=== PATIENT | female | born 1945 | race Caucasian/White ===

== ENCOUNTER 2022-06-14 12:24 | Inpatient (IN) ==
[2022-06-14] MEDS ORDERED: IPRATROPIUM/ALBUTEROL 3 ML AMPUL.NEB NEB ONE (12:32)
[2022-06-14] MEDS ORDERED: methylPREDNISolone SOD SUCC 125 MG/2 ML VIAL IV ONE (12:33)
[2022-06-14] MEDS ORDERED: MAGNESIUM SULFATE 2 GM/50 ML BAG IV ONE (12:36)
[2022-06-14] MEDS ORDERED: FUROSEMIDE 40 MG/4 ML VIAL IV ONE (12:37)
--- NOTE | 2022-06-14 12:43 | Emergency Department Note ---
SOB HPI General Chief Complaint: Shortness of Breath/Dyspnea Stated Complaint: shortness of breath, hypoxia Time Seen by Provider: 06/14/22 12:29 Source: patient and EMS Mode of arrival: EMS History of Present Illness HPI Narrative: Narrative: 77-year-old female history of diabetes, hypertension presenting to the ED via EMS for severe dyspnea, acute hypoxic respiratory failure. She was seen in the ED 2 days ago and was diagnosed with a left lower pneumonia and also had a bit of a pleural effusion and elevated BNP. She was sent home on antibiotics. However today she suddenly worsened. She says she has had fever, chills, URI symptoms, productive cough and now severely worsening dyspnea. No chest pains at any point. No history of heart failure, no history of known chronic lung disease such as COPD or asthma. When EMS arrived she was hypoxic 75% on room air. They placed her on a nonrebreather and gave her 2 breathing treatments and brought her to the ER. Related Data Home Medications Medication Instructions Recorded Confirmed amitriptyline 10 mg tablet 10 mg PO HS 06/12/22 06/14/22 citalopram 20 mg tablet 20 mg PO QDAY 06/12/22 06/14/22 levothyroxine 100 mcg tablet 100 mcg PO QDAY 06/12/22 06/14/22 lisinopril 20 mg tablet 20 mg PO BID 06/12/22 06/14/22 metformin 500 mg tablet,extended 1,000 mg PO HS 06/12/22 06/14/22 release 24 hr omeprazole 20 mg capsule,delayed 20 mg PO QDAY 06/12/22 06/14/22 release simvastatin 20 mg tablet 20 mg PO HS 06/12/22 06/14/22 Previous Rx's Medication Instructions Recorded amoxicillin 875 mg-potassium 1 tab PO BID Community-acquired 06/12/22 clavulanate 125 mg tablet pneumonia #14 tabs Allergies Allergy/AdvReac Type Severity Reaction Status Date / Time No Known Drug Allergies Allergy Verified 06/12/22 09:41 Review of Systems ROS ROS Narrative: Narrative: Limitations: ROS unobtainable due to patients medical condition [facility] Narrative Patient History Narrative: Narrative: Medical/Surgical/Family History All Active Problems (Updated 06/14/22 @ 16:20 by Natan Soriano DO) Elevated LFTs (Acute) Community acquired pneumonia (Acute) Fever (Acute) Generalized weakness (Acute) Pneumonia (Acute) Sepsis (Acute) Acute respiratory failure with hypoxia (Acute) Elevated troponin (Acute) Elevated brain natriuretic peptide (BNP) level (Acute) Obesity (BMI 30.0-34.9) (Chronic) Hypertension, essential (Chronic) Diabetes mellitus, type 2 (Chronic) Dizziness (Acute) Stomach cramps (Acute) Syncope (Acute) Medical History Diabetes mellitus, type 2 Hypertension, essential Obesity (BMI 30.0-34.9) Social History Smoking Status: Smoker, status unknown Exam Narrative Narrative: Narrative: Constitutional: normally developed, patient is acutely ill-appearing she is in respiratory distress, tachycardic, tachypneic hypoxic afebrile she is diaphoretic Head: Normocephalic, atraumatic, Eyes: No Icterus, ENT: Moist mucus membranes, Neck: Supple, no stridor Cardiac: Tachycardic regular heart sounds, palpable peripheral pulses, no peripheral edema Pulmonary: She is in some respiratory distress but able to answer simple yes or no questions, she has inspiratory and expiratory wheezing and sporadic crackles. Prolonged expiration Gastrointestinal: Abdomen soft, non-distended, non-tender, Musculoskeletal: No gross deformities, well perfused Skin: warm, dry Neuro: Alert and oriented. Course Vital Signs Vital signs: Vital Signs Temperature 37.2 C 06/14/22 12:35 Pulse Rate 132 H 06/14/22 12:35 Respiratory Rate 36 H 06/14/22 12:35 Blood Pressure 152/87 06/14/22 12:35 Pulse Oximetry (%) 86 L 06/14/22 12:35 Oxygen Delivery Method Simple Mask 06/14/22 12:35 Oxygen Flow Rate (L/min) 8 06/14/22 12:35 Temperature 37.7 C H 06/14/22 15:15 Pulse Rate 113 H 06/14/22 18:51 Respiratory Rate 30 H 06/14/22 18:51 Blood Pressure 153/82 06/14/22 18:51 Pulse Oximetry (%) 94 06/14/22 18:51 Oxygen Delivery Method BiPAP 06/14/22 15:46 Oxygen Flow Rate (L/min) 8 06/14/22 12:35 [facility] MDM Narrative Medical decision making narrative: Narrative: Patient presents as above she is in significant hypoxic respiratory distress very wheezy with sporadic rhonchi and rales. I did quickly review her last recent visit she was diagnosed with pneumonia 2 days ago it seemed to be more focal to the left lower lobe at that time also a small pleural effusion and she had an elevated BNP of 3000. She is not on any diuretics. She is not having any chest pain and no history of chronic lung disease. We did immediately place her on some BiPAP give her another breathing treatment some magnesium sulfate and 40 Lasix while awaiting results. Differential includes but certainly not limited to worsening pneumonia, sepsis, CHF exacerbation, bronchospasm or reactive airway disease, hypercapnia, ACS. Did hold initial IV fluids out of concern for volume overload, CHF especially given her recently elevated BNP and pleural effusion on x-ray 2 days ago. Gave vancomycin/cefepime for suspected worsening pneumonia despite outpatient antibiotic Twelve-lead EKG has a wandering baseline given her respiratory status, although it does appear to be a sinus tachycardia heart rate 130 QTC appears prolonged does have a left bundle branch block pattern with no obvious sgarbossa criteria. No STEMI criteria. Does appear similar to her EKG done just 2 days ago. And she does have a and she does have a known previous left bundle branch block from 2019 CXR per my preliminary interpretation looks like a worsening left lower lobe pneumonia, questionable CHF compared to couple days ago Initial VBG shows a slight acidosis 7.29 with a PCO2 of 48, PO2 of 32 and a bicarb of 23. Lactic acid 4.7 Re-eval, patient feels immediate improvement on the BiPAP, work of breathing much better sats improved CBC shows a white count now of 23, marked increase from 2 days ago BNP is quite elevated 21,000 Chest x-ray interpreted by our radiologist shows worsened left mid/lower lobe pneumonia, just a small pleural effusion no noted CHF Reevaluation continues to feel better, in the setting of worsening pneumonia/sepsis and persistent tachycardia without florid CHF on CXR I will start small judicious IV fluids at a time starting with 500 cc. We will also give her ofirmev of as she is starting to spike a low-grade fever COVID flu negative Electrolytes show a hyponatremia hypochloremia sodium 121, anion gap of 17 with a bicarb of 20, glucose of 172, normal renal function, no significant abnormality to her LFTs Initial troponin elevated 0.29 she has no chest pain in the setting of respiratory distress with hypoxia and pneumonia I suspect is likely secondary, will trend Repeat blood gas pH 7.3, PCO2 41, PO2 of 53 lactic acid improving 2.8 Repeat troponin however uptrending 0.45, again patient is not having any chest pains. Repeat EKG at 1552, remains sinus tachycardic heart rate improved now 115, QTc improved 500, again left bundle branch block, no STEMI criteria Discussed with the hospitalist, will reach out to [facility] to discuss case see if she is appropriate to admit here or if we should transfer 1600: Spoke with Dr. Hatfield, [facility] final inspector and tester re: presentation, uptrending troponin, significantly increased BNP etc. agrees presentation suggests this is type II NSTEMI/demand, recs continue treatment for underlying pneumonia/sepsis, does recommend echo, also suggests that if echo shows stress-induced cardiomyopathy recommendations would still likely be to treat the underlying illness (PNA/sepsis). 1610: Spoke with Dr. Torres again, he graciously accepts admission. I will also given another 500cc bolus, as she seemed to tolerate the first one well and heart rate is improving Critical Care Time Total CriticalCare time was at least 45 minutes, excluding separately reportable procedures. There was a high probability of clinically significant/life threatening deterioration in the patient's condition which required my urgent intervention. Medical Records Medical records reviewed: Yes I reviewed the patient's medical records. Lab Data 06/14/22 12:35 06/14/22 12:35 Labs: Lab Results 06/14/22 06/14/22 06/14/22 Range/Units 12:35 12:35 12:35 WBC 23.4 H (4.5-11.0) K/mcL RBC 4.05 (3.59-5.38) M/mcL Hgb 12.7 (11.2-15.7) g/dL Hct 37.7 (34.1-44.9) % MCV 93.1 (80.0-100.0) fL MCH 31.4 (26.0-34.0) pg MCHC 33.7 (31.0-36.0) g/dL RDW 15.3 H (11.5-14.5) % Plt Count 225 (140-440) K/mcL MPV 10.5 (8.8-12.5) fL Immature Gran % (Auto) 3.1 H (0.0-0.5) % Neut % (Auto) 81.9 H (38.0-78.0) % Lymph % (Auto) 7.4 L (15.5-49.0) % [place] % (Auto) 7.0 (1.0-12.0) % Eos % (Auto) 0 (0.0-7.0) % Baso % (Auto) 0.6 (0.0-2.0) % Lymph # (Auto) 1.74 (1.50-4.80) K/mcL [place] # (Auto) 1.65 H (0.10-0.90) K/mcL Eos # (Auto) 0.01 (0.00-0.70) K/mcL Baso # (Auto) 0.13 (0.00-0.30) K/mcL Immature Gran # 0.72 H (0.00-0.05) K/mcl Absolute Neutrophils 19.17 H (1.80-8.00) K/mcL POC VBG pH (7.32-7.42) POC VBG pCO2 at Temp (41-51) POC VBG pO2 (25-40) POC VBG HCO3 (24-28) POC VBG Total CO2 (25-29) POC Venous O2 Sat (40-70) POC VBG Base Excess (-2-2) VBG Lactic Acid (0.5-2) Sodium 121 L (133-145) mmol/L Potassium 4.2 (3.3-5.1) mmol/L Chloride 84 L (96-108) mmol/L Carbon Dioxide 20 L (22-30) mmol/L Anion Gap 17.0 H (8.0-16.0) BUN 18 (8-23) mg/dL Creatinine 0.9 (0.6-1.1) mg/dL GFR Calculation 62 Glucose 172 H (70-105) mg/dL Calcium 8.9 (8.6-10.4) mg/dL Total Bilirubin 0.9 (0.1-1.0) mg/dL AST 64 H (<32) U/L ALT 35 (<40) U/L Alkaline Phosphatase 96 (39-117) U/L C-Reactive Protein 24.10 H (0.03-0.80) mg/dL NT-Pro-B Natriuret Pep 49681.0 H (<450.0) pg/mL Total Protein 6.4 (5.9-8.4) gm/dL Albumin 3.1 L (3.2-5.2) gm/dL Globulin 3.3 (2.2-3.7) gm/dL Albumin/Globulin Ratio 0.9 L (1.0-2.3) Procalcitonin (<0.10) ng/mL POC Troponin I (0.00-0.08) 06/14/22 06/14/22 06/14/22 Range/Units 12:35 12:42 12:42 WBC (4.5-11.0) K/mcL RBC (3.59-5.38) M/mcL Hgb (11.2-15.7) g/dL Hct (34.1-44.9) % MCV (80.0-100.0) fL MCH (26.0-34.0) pg MCHC (31.0-36.0) g/dL RDW (11.5-14.5) % Plt Count (140-440) K/mcL MPV (8.8-12.5) fL Immature Gran % (Auto) (0.0-0.5) % Neut % (Auto) (38.0-78.0) % Lymph % (Auto) (15.5-49.0) % [place] % (Auto) (1.0-12.0) % Eos % (Auto) (0.0-7.0) % Baso % (Auto) (0.0-2.0) % Lymph # (Auto) (1.50-4.80) K/mcL [place] # (Auto) (0.10-0.90) K/mcL Eos # (Auto) (0.00-0.70) K/mcL Baso # (Auto) (0.00-0.30) K/mcL Immature Gran # (0.00-0.05) K/mcl Absolute Neutrophils (1.80-8.00) K/mcL POC VBG pH 7.29 L (7.32-7.42) POC VBG pCO2 at Temp 48.7 (41-51) POC VBG pO2 32 (25-40) POC VBG HCO3 23.2 L (24-28) POC VBG Total CO2 25.0 (25-29) POC Venous O2 Sat 53.0 (40-70) POC VBG Base Excess -3.0 L (-2-2) VBG Lactic Acid 4.7 H* (0.5-2) Sodium (133-145) mmol/L Potassium (3.3-5.1) mmol/L Chloride (96-108) mmol/L Carbon Dioxide (22-30) mmol/L Anion Gap (8.0-16.0) BUN (8-23) mg/dL Creatinine (0.6-1.1) mg/dL GFR Calculation Glucose (70-105) mg/dL Calcium (8.6-10.4) mg/dL Total Bilirubin (0.1-1.0) mg/dL AST (<32) U/L ALT (<40) U/L Alkaline Phosphatase (39-117) U/L C-Reactive Protein (0.03-0.80) mg/dL NT-Pro-B Natriuret Pep (<450.0) pg/mL Total Protein (5.9-8.4) gm/dL Albumin (3.2-5.2) gm/dL Globulin (2.2-3.7) gm/dL Albumin/Globulin Ratio (1.0-2.3) Procalcitonin 11.45 H (<0.10) ng/mL POC Troponin I 0.29 H (0.00-0.08) 06/14/22 06/14/22 06/14/22 Range/Units 15:17 15:19 16:05 WBC (4.5-11.0) K/mcL RBC (3.59-5.38) M/mcL Hgb (11.2-15.7) g/dL Hct (34.1-44.9) % MCV (80.0-100.0) fL MCH (26.0-34.0) pg MCHC (31.0-36.0) g/dL RDW (11.5-14.5) % Plt Count (140-440) K/mcL MPV (8.8-12.5) fL Immature Gran % (Auto) (0.0-0.5) % Neut % (Auto) (38.0-78.0) % Lymph % (Auto) (15.5-49.0) % [place] % (Auto) (1.0-12.0) % Eos % (Auto) (0.0-7.0) % Baso % (Auto) (0.0-2.0) % Lymph # (Auto) (1.50-4.80) K/mcL [place] # (Auto) (0.10-0.90) K/mcL Eos # (Auto) (0.00-0.70) K/mcL Baso # (Auto) (0.00-0.30) K/mcL Immature Gran # (0.00-0.05) K/mcl Absolute Neutrophils (1.80-8.00) K/mcL POC VBG pH 7.30 L (7.32-7.42) POC VBG pCO2 at Temp 41.8 (41-51) POC VBG pO2 53 H (25-40) POC VBG HCO3 20.6 L (24-28) POC VBG Total CO2 22.0 L (25-29) POC Venous O2 Sat 83.0 H (40-70) POC VBG Base Excess -6.0 L (-2-2) VBG Lactic Acid 2.8 H 2.3 H (0.5-2) Sodium (133-145) mmol/L Potassium (3.3-5.1) mmol/L Chloride (96-108) mmol/L Carbon Dioxide (22-30) mmol/L Anion Gap (8.0-16.0) BUN (8-23) mg/dL Creatinine (0.6-1.1) mg/dL GFR Calculation Glucose (70-105) mg/dL Calcium (8.6-10.4) mg/dL Total Bilirubin (0.1-1.0) mg/dL AST (<32) U/L ALT (<40) U/L Alkaline Phosphatase (39-117) U/L C-Reactive Protein (0.03-0.80) mg/dL NT-Pro-B Natriuret Pep (<450.0) pg/mL Total Protein (5.9-8.4) gm/dL Albumin (3.2-5.2) gm/dL Globulin (2.2-3.7) gm/dL Albumin/Globulin Ratio (1.0-2.3) Procalcitonin (<0.10) ng/mL POC Troponin I 0.45 H (0.00-0.08) ED POC Tests ED POC Tests: NEIL - Influenza A Negative NEIL - Influenza B Negative NEIL - SARS Antigen Negative Discharge Plan Patient/Caregiver Discharge Instructions Pt seen by INFORMATION SECURITY CONSULTANT/PA only: No Clinical Impression: Pneumonia, Sepsis, Acute respiratory failure with hypoxia, Elevated troponin, Elevated brain natriuretic peptide (BNP) level Patient Disposition: Xfer As Inpt ([facility]) Condition: Critical Prescriptions: No Action lisinopril 20 mg tablet 20 mg PO BID levothyroxine 100 mcg tablet 100 mcg PO QDAY amitriptyline 10 mg tablet 10 mg PO HS simvastatin 20 mg tablet 20 mg PO HS omeprazole 20 mg capsule,delayed release(DR/EC) 20 mg PO QDAY citalopram 20 mg tablet 20 mg PO QDAY metformin 500 mg tablet extended release 24 hr 1,000 mg PO HS amoxicillin-pot clavulanate 875-125 mg tablet 1 tab PO BID Qty: 14 0RF
[2022-06-14] MEDS ORDERED: CEFEPIME 2 GM VIAL IV ONE (13:14)
[2022-06-14] MEDS ORDERED: VANCOMYCIN 1,000 MG in 0.9 % SODIUM CHLORIDE 250 ML IV ONE (13:14)
[2022-06-14 13:22] LABS: Basophils # (Auto) 0.13 K/mcL (0.00-0.30); Basophils % (Auto) 0.6 % (0.0-2.0); Eosinophils # (Auto) 0.01 K/mcL (0.00-0.70); Eosinophils % (Auto) 0 % (0.0-7.0); Hematocrit 37.7 % (34.1-44.9); Hemoglobin 12.7 g/dL (11.2-15.7); Lymphocytes # (Auto) 1.74 K/mcL (1.50-4.80); Lymphocytes % (Auto) 7.4 % (15.5-49.0); Mean Cell Volume 93.1 fL (80.0-100.0); Mean Corpuscular HGB Conc 33.7 g/dL (31.0-36.0); Mean Platelet Volume 10.5 fL (8.8-12.5); Monocytes # (Auto) 1.65 K/mcL (0.10-0.90); Neutrophils % (Auto) 81.9 % (38.0-78.0); Platelet Count 225 K/mcL (140-440); RBC 4.05 M/mcL (3.59-5.38); Red Cell Distribution Width 15.3 % (11.5-14.5)
--- NOTE | 2022-06-14 13:22 | XRay Report ---
CLINICAL INFORMATION: [Left basilar pneumonia COMPARISON: 06/12/2022 TECHNIQUE: Portable FINDINGS: Borderline cardiomegaly is unchanged. Mediastinum and pulmonary vessels are normal. Moderate sized infiltrate left mid and lower lung has worsened considerably. Small left pleural effusion noted. IMPRESSION: Moderate infiltrate left mid and lower lung-worsening from exam three days ago. This likely represents immune acquired pneumonia Interpreted and Authenticated by: Chetan Timmons 06/14/22
[2022-06-14 13:43] LABS: ALT/SGPT 35 U/L (<40); AST/SGOT 64 U/L (<32); Albumin 3.1 gm/dL (3.2-5.2); Albumin/Globulin Ratio 0.9 (1.0-2.3); Alkaline Phosphatase 96 U/L (39-117); Bilirubin,Total 0.9 mg/dL (0.1-1.0); Blood Urea Nitrogen 18 mg/dL (8-23); Calcium 8.9 mg/dL (8.6-10.4); Carbon Dioxide 20 mmol/L (22-30); Chloride 84 mmol/L (96-108); Globulin 3.3 gm/dL (2.2-3.7); Glomerular Filtration Rate 62; Glucose 172 mg/dL (70-105)
[2022-06-14] MEDS ORDERED: 0.9 % SODIUM CHLORIDE 500 ML IV ONE ×2 (13:58→16:13)
[2022-06-14 14:04] LABS: WBC 23.4 K/mcL (4.5-11.0)
[2022-06-14] MEDS ORDERED: ACETAMINOPHEN 1,000 MG/100 ML BAG IV ONE (14:24)
--- NOTE | 2022-06-14 16:36 | Internal Med History&Physical ---
HPI History of Present Illness Patient information: Note initiated : 06/14/22 at 4:28 pm Service Date, if different from initiated Date: [] Patient: Sharyn Strickland a 77 y/o F admitted on for shortness of breath, hypoxia. Chief Complaint: [] History of present illness: Ms. Strickland is a 77 year old F Presents the ED for worsening shortness of breath and weakness. Patient was seen in the ED several days ago on Wednesday and diagnosed with pneumonia without any other concerning findings and was saturating well on room air. She was started on antibiotics however she continued to over wednesday and wednesday severe shortness of breath and weakness. She also complained of fevers chills and nausea and headache. Productive cough of yellow-green sputum. She first started feeling ill on Wednesday with cold symptoms after her had been sick. She also complains of diarrhea. Patient denies chest pain. When EMS arrived she was 75% on room air. In the ED she was tachycardic and tachypneic. She had developed a leukocytosis and a lactic acidosis. VBG showed acidosis 7.29. Patient placed on BiPAP. Mild troponin elevation and significant increase in bnp from several days ago. Case d/w cardio with ED physician who felt troponins likely 2/2 to demand ischemia, type 2 DC. And that if she had developed a stress cardiomyopathy it would be same treatment, and to get echo. Rapid flu and COVID-negative. Review of Systems: Pertinent positives as above. Denies vomiting/chest or abdominal pain. Remaining 10 point review of system reviewed negative PFSH PFSH All Active Problems (Updated 06/14/22 @ 16:20 by Natan Soriano DO) Elevated LFTs (Acute) Community acquired pneumonia (Acute) Fever (Acute) Generalized weakness (Acute) Pneumonia (Acute) Sepsis (Acute) Acute respiratory failure with hypoxia (Acute) Elevated troponin (Acute) Elevated brain natriuretic peptide (BNP) level (Acute) Obesity (BMI 30.0-34.9) (Chronic) Hypertension, essential (Chronic) Diabetes mellitus, type 2 (Chronic) Dizziness (Acute) Stomach cramps (Acute) Syncope (Acute) Medical History Diabetes mellitus, type 2 Hypertension, essential Obesity (BMI 30.0-34.9) Social History smoking status: Smoker, status unknown MEDS/ALLERGIES Home Medications and Allergies Home Medications Medication Instructions Recorded Confirmed Type amitriptyline 10 mg tablet 10 mg PO HS 06/12/22 06/14/22 History amoxicillin 875 mg-potassium 1 tab PO BID Community-acquired 06/12/22 06/14/22 Rx clavulanate 125 mg tablet pneumonia #14 tabs citalopram 20 mg tablet 20 mg PO QDAY 06/12/22 06/14/22 History levothyroxine 100 mcg tablet 100 mcg PO QDAY 06/12/22 06/14/22 History lisinopril 20 mg tablet 20 mg PO BID 06/12/22 06/14/22 History metformin 500 mg tablet,extended 1,000 mg PO HS 06/12/22 06/14/22 History release 24 hr omeprazole 20 mg capsule,delayed 20 mg PO QDAY 06/12/22 06/14/22 History release simvastatin 20 mg tablet 20 mg PO HS 06/12/22 06/14/22 History Allergies Allergy/AdvReac Type Severity Reaction Status Date / Time No Known Drug Allergies Allergy Verified 06/12/22 09:41 EXAM Constitutional Vitals: Temp Pulse Resp BP Pulse Ox O2 Del Method O2 Flow Rate 100 F H 117 H 28 H 144/65 95 BiPAP 8 06/14/22 15:15 06/14/22 15:55 06/14/22 15:55 06/14/22 15:46 06/14/22 15:55 06/14/22 15:46 06/14/22 12:35 Exam: General: Alert, Awake, mild resp distress Eyes/N/T: EOMI, PERRL, Head/Neck: neck supple, normocephalic atraumatic CV: RRR, No murmurs, normal s1/s2 Pulm: rhonchi/rales L>R, no wheezing Abd: soft, nontender, +BS x4 Ext: no clubbing/cyanosis/edema Neuro: Alert, no focal deficits, moves all extremities, CN 2-12 grossly intact, sensations intact b/l upper/lower Skin: warm/dry DATA Data Completed and Pending Labs: Labs from last 24 hours 06/14/22 06/14/22 06/14/22 16:05 15:19 15:17 WBC RBC Hgb Hct MCV MCH MCHC RDW Plt Count MPV Immature Gran % (Auto) Neut % (Auto) Lymph % (Auto) [place] % (Auto) Eos % (Auto) Baso % (Auto) Lymph # (Auto) [place] # (Auto) Eos # (Auto) Baso # (Auto) Immature Gran # Absolute Neutrophils POC VBG pH 7.30 L POC VBG pCO2 at Temp 41.8 POC VBG pO2 53 H POC VBG HCO3 20.6 L POC VBG Total CO2 22.0 L POC Venous O2 Sat 83.0 H POC VBG Base Excess -6.0 L VBG Lactic Acid Pending 2.8 H Sodium Potassium Chloride Carbon Dioxide Anion Gap BUN Creatinine GFR Calculation Glucose Calcium Total Bilirubin AST ALT Alkaline Phosphatase NT-Pro-B Natriuret Pep Total Protein Albumin Globulin Albumin/Globulin Ratio POC Troponin I 0.45 H 06/14/22 06/14/22 06/14/22 12:42 12:42 12:35 WBC RBC Hgb Hct MCV MCH MCHC RDW Plt Count MPV Immature Gran % (Auto) Neut % (Auto) Lymph % (Auto) [place] % (Auto) Eos % (Auto) Baso % (Auto) Lymph # (Auto) [place] # (Auto) Eos # (Auto) Baso # (Auto) Immature Gran # Absolute Neutrophils POC VBG pH 7.29 L POC VBG pCO2 at Temp 48.7 POC VBG pO2 32 POC VBG HCO3 23.2 L POC VBG Total CO2 25.0 POC Venous O2 Sat 53.0 POC VBG Base Excess -3.0 L VBG Lactic Acid 4.7 H* Sodium 121 L Potassium 4.2 Chloride 84 L Carbon Dioxide 20 L Anion Gap 17.0 H BUN 18 Creatinine 0.9 GFR Calculation 62 Glucose 172 H Calcium 8.9 Total Bilirubin 0.9 AST 64 H ALT 35 Alkaline Phosphatase 96 NT-Pro-B Natriuret Pep 59769.0 H Total Protein 6.4 Albumin 3.1 L Globulin 3.3 Albumin/Globulin Ratio 0.9 L POC Troponin I 0.29 H 06/14/22 12:35 WBC 23.4 H RBC 4.05 Hgb 12.7 Hct 37.7 MCV 93.1 MCH 31.4 MCHC 33.7 RDW 15.3 H Plt Count 225 MPV 10.5 Immature Gran % (Auto) 3.1 H Neut % (Auto) 81.9 H Lymph % (Auto) 7.4 L [place] % (Auto) 7.0 Eos % (Auto) 0 Baso % (Auto) 0.6 Lymph # (Auto) 1.74 [place] # (Auto) 1.65 H Eos # (Auto) 0.01 Baso # (Auto) 0.13 Immature Gran # 0.72 H Absolute Neutrophils 19.17 H POC VBG pH POC VBG pCO2 at Temp POC VBG pO2 POC VBG HCO3 POC VBG Total CO2 POC Venous O2 Sat POC VBG Base Excess VBG Lactic Acid Sodium Potassium Chloride Carbon Dioxide Anion Gap BUN Creatinine GFR Calculation Glucose Calcium Total Bilirubin AST ALT Alkaline Phosphatase NT-Pro-B Natriuret Pep Total Protein Albumin Globulin Albumin/Globulin Ratio POC Troponin I A/P Narrative A/P Narrative: A: *Acute hypoxic respiratory failure: 2/2 PNA -currently on bipap *PNA: *Severe sepsis: 2/2 above *Lactic acidosis: 2/2 above *Hyponatremia: *Volume depletion: *Demand ischemia: *DM2: *HTN/HLD: *Depression/anxiety: *Hypothyroidism: *GERD: P: -IV antibiotics, pending BC/SC -IVF, follow-up lactate -Monitor UOP, fluid balance closely -Follow-up and trend sodium and other electrolytes, replete as necessary -IS/Acapella, RT, nebs as needed -O2 support and wean as able -Strep/RVP pending -Procalcitonin pending -f/u trop -echo to eval for stress cardiomyopathy -SSI -cont home ACEI -Home medication reconciliation -PT/OT -CM for placement needs -ppx: Lovenox / home ppi Time Spent With Patient Time: Total time spent is greater than 50% in coordination of care (as documented) at patient's floor/unit and/or counseling patient: Critical Care Time: Yes Total Critical Care Time: 70
[2022-06-14] MEDS ORDERED: cefTRIAXone 1 GM in DEXTROSE 5% IN WATER 50 ML IV SCH (19:20)
[2022-06-14] MEDS ORDERED: MAGNESIUM SULFATE 2 GM/50 ML BAG IV PRN (19:20)
[2022-06-14] MEDS ORDERED: POTASSIUM CHLORIDE 40 MEQ in DEXTROSE 5% IN WATER 500 ML IV PRN (19:20)
[2022-06-14] MEDS ORDERED: ONDANSETRON 4 MG/2 ML VIAL IV PRN (19:20)
[2022-06-14] MEDS ORDERED: DEXTROSE 50% 50 ML VIAL IV PRN (19:20)
[2022-06-14] MEDS ORDERED: DEXTROSE 31 GM ORAL.SUSP PO PRN (19:20)
[2022-06-14] MEDS ORDERED: POTASSIUM CHLORIDE 20 MEQ TABLET PO PRN ×2 (19:20)
[2022-06-14 19:40] LABS: Appearance,Urine CLEAR (Clear); Bilirubin,Urine NEGATIVE (Negative); Color,Urine YELLOW; Culture Indicated,Urine No; Glucose,Urine (UA) NEGATIVE (Negative); Ketones,Urine NEGATIVE (Negative); Leukocyte Esterase,Urine NEGATIVE /uL (Negative); Mucus,Urine MOD /hpf; Nitrate,Urine NEGATIVE (Negative); Protein,Urine >=300 mg/dL (Negative); Specific Gravity,Urine 1.025 (1.000-1.035); Urine Blood SMALL ery/mcL (Negative); Urine Granular Cast 4 /lph (0-0); Urine Hyaline Cast 3 /lph (0-2); Urine RBC 2 /hpf (0-3); Urine Squamous Epithelial Cell 0 /hpf (0-4); Urine WBC 5 /hpf (0-4); Urobilinogen,Urine Normal
[2022-06-14] MEDS: AZITHROMYCIN 500 MG in DEXTROSE 5% IN WATER 250 ML IV SCH (19:51)
[2022-06-14] MEDS: cefTRIAXone 1 GM VIAL IV SCH (19:55)
[2022-06-14] MEDS: INSULIN LISPRO 1 UNIT/0.01 ML UNIT SQ SCH ×2 (22:08→22:49)
[2022-06-14] MEDS: SIMVASTATIN 20 MG TABLET PO SCH (22:14)
[2022-06-14] MEDS: ACETAMINOPHEN 325 MG TABLET PO PRN (22:14)
[2022-06-14] MEDS: AMITRIPTYLINE 10 MG TABLET PO SCH (22:14)
[2022-06-14] MEDS: LISINOPRIL 20 MG TABLET PO SCH (22:14)
[2022-06-14] MEDS: guaiFENesin 600 MG TAB.SR.12H PO PRN (22:15)
[2022-06-14] MEDS: 0.9 % SODIUM CHLORIDE 10 ML SYRINGE IV SCH (22:15)
[2022-06-14] MEDS: LABETALOL 5 MG/ML ML IV PRN (23:26)
[2022-06-14] MEDS: IPRATROPIUM/ALBUTEROL 3 ML AMPUL.NEB NEB PRN (23:27)
[2022-06-15] MEDS: 0.9 % SODIUM CHLORIDE 10 ML SYRINGE IV SCH ×3 (05:12→20:40)
[2022-06-15] MEDS: OMEPRAZOLE 20 MG CAPSULE PO SCH (06:54)
[2022-06-15] MEDS: LEVOTHYROXINE 100 MCG TABLET PO SCH (06:54)
[2022-06-15] MEDS: INSULIN LISPRO 1 UNIT/0.01 ML UNIT SQ SCH ×4 (06:54→20:40)
[2022-06-15] MEDS: IPRATROPIUM/ALBUTEROL 3 ML AMPUL.NEB NEB PRN ×3 (07:00→23:25)
--- NOTE | 2022-06-15 07:44 | Internal Med Progress Note ---
SUBJECTIVE Subjective Patient information: Note initiated : 06/15/22 at 7:38 am Service Date, if different from initiated Date: [] Patient: Sharyn Strickland a 77 y/o F admitted on 06/14/22 for shortness of breath, hypoxia. Chief Complaint: [] Interval history: History of present illness: Ms. Strickland is a 77 year old F Presents the ED for worsening shortness of breath and weakness. Patient was seen in the ED several days ago on Wednesday and diagnosed with pneumonia without any other concerning findings and was saturating well on room air. She was started on antibiotics however she continued to over wednesday and wednesday severe shortness of breath and weakness. She also complained of fevers chills and nausea and headache. Productive cough of yellow-green sputum. She first started feeling ill on Wednesday with cold symptoms after her had been sick. She also complains of diarrhea. Patient denies chest pain. When EMS arrived she was 75% on room air. In the ED she was tachycardic and tachypneic. She had developed a leukocytosis and a lactic acidosis. VBG showed acidosis 7.29. Patient placed on BiPAP. Mild troponin elevation and significant increase in bnp from several days ago. Case d/w cardio with ED physician who felt troponins likely 2/2 to demand ischemia, type 2 IN. And that if she had developed a stress cardiomyopathy it would be same treatment, and to get echo. Rapid flu and COVID-negative. 06/15 Patient taken off of BiPAP this morning for meds. We will also get VBG. She says she still quite short of breath. Has a Cough. No nausea vomiting or headaches. She does have some diarrhea. Sodium mildly improved still quite low. Hypophosphatemia. Review of Systems: denies headache/fever/chills/nausea/vomiting/chest or abdominal pain. Otherwise see above. Constitutional Vitals: Vital Signs Temp Pulse Resp BP Pulse Ox O2 Del Method O2 Flow Rate 97.2 F 107 H 32 H 150/81 99 BiPAP 6 06/15/22 03:00 06/15/22 06:30 06/15/22 06:30 06/15/22 06:30 06/15/22 06:30 06/15/22 06:30 06/15/22 02:55 Period Temp Pulse Resp BP Sys/Laughlin Pulse Ox O2 Del Method O2 Flow Rate Last 24 Hr 97.2 F-100.3 F 85-137 19-38 95-202/47-115 83-99 BiPAP-Simple Mask 5-8 Intake and Output 06/14/22 06/15/22 06/15/22 19:59 03:59 11:59 Intake Total 1400 986 Output Total 225 325 150 Balance 1175 661 -150 Weight 81.193 kg 77.649 kg Intake & Output: Intake & Output 06/14/22 06/15/22 06/15/22 19:59 03:59 11:59 Intake Total 1400 986 Output Total 225 325 150 Balance 1175 661 -150 Weight 81.193 kg 77.649 kg Intake: IV 1400 250 Sodium Chloride 0.9% 500 ml @ 1000 Wide Open IV BOLUS ONE Rx#: [id number] Zithromax 500 mg In Dextrose 5% 250 in Water 250 ml @ 250 mls/hr IV Q24H COUNTS INCLUDE 234 BEDS AT THE [facility] Rx#:[id number] Vancomycin 1,000 mg In Sodium 250 Chloride 0.9% 250 ml @ 250 mls/ hr IV ONCE ONE Rx#:[id number] Oral 736 Output: Urine Catheter Amount 225 325 150 Other: Urine Appearance Clear Clear Clear Uretheral (Miller) Clear Urine Color Dark Yellow Dark Yellow Dark Yellow Uretheral (Miller) Dark Yellow Urine Odor Normal Normal Stool Size Copious Stool Color Green Stool Consistency Loose Liquid Loose # Bowel Movements 1 # of times incontinent of 1 Bowels Exam: General: Alert, Awake, no acute distress Eyes/N/T: EOMI, Head/Neck: neck supple, CV: Tacky but regular, No murmurs, Pulm: rhonchi/rales b/l, no wheezing, somewhat labored Abd: soft, nontender, +BS x4 Ext: no clubbing/cyanosis/edema Neuro: Alert, no focal deficits, moves all extremities, Skin: warm/dry OBJ DATA Labs 06/14/22 12:35 06/14/22 12:35 Labs: Abnormal Lab Results 06/14/22 06/14/22 06/14/22 17:45 16:05 15:19 WBC RDW Immature Gran % (Auto) Neut % (Auto) Lymph % (Auto) [place] # (Auto) Immature Gran # Absolute Neutrophils POC VBG pH POC VBG pO2 POC VBG HCO3 POC VBG Total CO2 POC Venous O2 Sat POC VBG Base Excess VBG Lactic Acid 2.3 H Sodium Chloride Carbon Dioxide Anion Gap Glucose AST C-Reactive Protein NT-Pro-B Natriuret Pep Albumin Albumin/Globulin Ratio Procalcitonin Urine Protein >=300 A Urine Occult Blood Small A Urine WBC 5 H Hyaline Casts 3 H Granular Casts 4 H Urine Mucus Mod A POC Troponin I 0.45 H 06/14/22 06/14/22 06/14/22 15:17 12:42 12:42 WBC RDW Immature Gran % (Auto) Neut % (Auto) Lymph % (Auto) [place] # (Auto) Immature Gran # Absolute Neutrophils POC VBG pH 7.30 L 7.29 L POC VBG pO2 53 H POC VBG HCO3 20.6 L 23.2 L POC VBG Total CO2 22.0 L POC Venous O2 Sat 83.0 H POC VBG Base Excess -6.0 L -3.0 L VBG Lactic Acid 2.8 H 4.7 H* Sodium Chloride Carbon Dioxide Anion Gap Glucose AST C-Reactive Protein NT-Pro-B Natriuret Pep Albumin Albumin/Globulin Ratio Procalcitonin Urine Protein Urine Occult Blood Urine WBC Hyaline Casts Granular Casts Urine Mucus POC Troponin I 0.29 H 06/14/22 06/14/22 06/14/22 12:35 12:35 12:35 WBC RDW Immature Gran % (Auto) Neut % (Auto) Lymph % (Auto) [place] # (Auto) Immature Gran # Absolute Neutrophils POC VBG pH POC VBG pO2 POC VBG HCO3 POC VBG Total CO2 POC Venous O2 Sat POC VBG Base Excess VBG Lactic Acid Sodium 121 L Chloride 84 L Carbon Dioxide 20 L Anion Gap 17.0 H Glucose 172 H AST 64 H C-Reactive Protein 24.10 H NT-Pro-B Natriuret Pep 61527.0 H Albumin 3.1 L Albumin/Globulin Ratio 0.9 L Procalcitonin 11.45 H Urine Protein Urine Occult Blood Urine WBC Hyaline Casts Granular Casts Urine Mucus POC Troponin I 06/14/22 12:35 WBC 23.4 H RDW 15.3 H Immature Gran % (Auto) 3.1 H Neut % (Auto) 81.9 H Lymph % (Auto) 7.4 L [place] # (Auto) 1.65 H Immature Gran # 0.72 H Absolute Neutrophils 19.17 H POC VBG pH POC VBG pO2 POC VBG HCO3 POC VBG Total CO2 POC Venous O2 Sat POC VBG Base Excess VBG Lactic Acid Sodium Chloride Carbon Dioxide Anion Gap Glucose AST C-Reactive Protein NT-Pro-B Natriuret Pep Albumin Albumin/Globulin Ratio Procalcitonin Urine Protein Urine Occult Blood Urine WBC Hyaline Casts Granular Casts Urine Mucus POC Troponin I Meds: Medications Acetaminophen (Acetaminophen 325 Mg Tablet) 650 mg PO Q6HP PRN; Protocol PRN Reason: Per Pain Protocol/Fever > 101 Last Admin: 06/14/22 22:14 Dose: 650 mg Albuterol/Ipratropium (Ipratropium/Albuterol 3 Ml Ampul.Neb) 3 ml NEB Q4HP PRN PRN Reason: Shortness Of Breath Last Admin: 06/15/22 07:00 Dose: 3 ml Amitriptyline HCl (Amitriptyline 10 Mg Tablet) 10 mg PO HS SHARON Last Admin: 06/14/22 22:14 Dose: 10 mg Ceftriaxone Sodium (Ceftriaxone 1 Gm Vial) 1 gm IV Q24H SHARON Last Admin: 06/14/22 19:55 Dose: 1 gm Citalopram Hydrobromide (Citalopram 20 Mg Tablet) 20 mg PO QDAY SHARON Dextrose (Dextrose 50% 50 Ml Vial) 0 ml IV UD PRN PRN Reason: Per Sliding Scale Diagnostic Test (Pha) (Accu-Chek 1 Each Strip) 1 each FS ACHS SHARON Last Admin: 06/15/22 06:55 Dose: 1 each Enoxaparin Sodium (Enoxaparin 40 Mg/0.4 Ml Syringe) 40 mg SQ DAILY SHARON Glucose (Dextrose 31 Gm Oral.Susp) 15 gm PO PRN PRN PRN Reason: Hypoglycemia Guaifenesin (Guaifenesin 600 Mg Tab.Sr.12h) 1,200 mg PO BIDP PRN PRN Reason: Congestion Last Admin: 06/14/22 22:15 Dose: 1,200 mg Azithromycin 500 mg/ Dextrose 250 mls @ 250 mls/hr IV Q24H SHARON; Protocol Stop: 06/16/22 20:59 Last Infusion: 06/14/22 20:55 Dose: Infused Magnesium Sulfate (Magnesium Sulfate) 2 gm in 50 mls @ 50 mls/hr IV UD PRN PRN Reason: Magnesium </= 1.6 Potassium Chloride 40 meq/ (Dextrose) 520 mls @ 130 mls/hr IV UD PRN PRN Reason: Potassium < 3 Insulin Human Lispro (Insulin Lispro 1 Unit/0.01 Ml Unit) 0 unit SQ ACHS COUNTS INCLUDE 234 BEDS AT THE [facility]; Protocol Last Admin: 06/15/22 06:54 Dose: Not Given Labetalol HCl (Labetalol 5 Mg/Ml Ml) 0 mg IV Q2HP PRN PRN Reason: Hypertension Last Admin: 06/14/22 23:26 Dose: 5 mg Levothyroxine Sodium (Levothyroxine 100 Mcg Tablet) [facility] Last Admin: 06/15/22 06:54 Dose: 100 mcg Lisinopril (Lisinopril 20 Mg Tablet) 20 mg PO BID COUNTS INCLUDE 234 BEDS AT THE [facility] Last Admin: 06/14/22 22:14 Dose: 20 mg Omeprazole (Omeprazole 20 Mg Capsule) 20 mg PO [facility] Last Admin: 06/15/22 06:54 Dose: 20 mg Ondansetron HCl (Ondansetron 4 Mg/2 Ml Vial) 4 mg IV Q4HP PRN PRN Reason: Nausea And Vomiting Last Admin: 06/14/22 22:14 Dose: 4 mg Pneumococcal Polyvalent Vaccine (Pneumococcal 23-Barbra P-Sac Vac 0.5 Ml Syringe) 0.5 ml IM .ONCE ONE Stop: 06/17/22 09:01 Potassium Chloride (Potassium Chloride 20 Meq Tablet) 40 meq PO UD PRN PRN Reason: Potassium < 3 Potassium Chloride (Potassium Chloride 20 Meq Tablet) 40 meq PO UD PRN PRN Reason: Potssium is 3-3.5 Simvastatin (Simvastatin 20 Mg Tablet) 20 mg PO [facility] Last Admin: 06/14/22 22:14 Dose: 20 mg Sodium Chloride (0.9 % Sodium Chloride 10 Ml Syringe) 10 ml IV Q8 COUNTS INCLUDE 234 BEDS AT THE [facility] Last Admin: 06/15/22 05:12 Dose: 10 ml A/P Narrative A/P Narrative: A: *Acute hypoxic respiratory failure: 2/2 PNA -currently on bipap *PNA: -strep/covid/flu neg -RSV(+), elevated PCT *Severe sepsis: 2/2 above -leukocytosis/tachycardia/tachypnea/Fever *Lactic acidosis: 2/2 above *Hyponatremia/hypophosphatemia: *Volume depletion: *Demand ischemia: f/u troponin this AM decreased *DM2: *HTN/HLD: *Depression/anxiety: *Hypothyroidism: *GERD: P: -pending am labs -wean off bipap, f/u vbg -cxr -IV antibiotics, pending BC/SC -s/p IVF, follow-up lactate -Monitor UOP, fluid balance closely -Follow-up and trend sodium and other electrolytes, replete as necessary -IS/Acapella, RT, nebs as needed -O2 support and wean as able -Strep/RVP pending -Procalcitonin pending -f/u trop -echo to eval for stress cardiomyopathy -SSI -cont home ACEI -PT/OT -CM for placement needs -ppx: Lovenox / home ppi Time Spent With Patient Time: Total time spent is greater than 50% in coordination of care (as documented) at patient's floor/unit and/or counseling patient: Critical Care Time: Yes Total Critical Care Time: 45
[2022-06-15] MEDS: CITALOPRAM 20 MG TABLET PO SCH (08:50)
[2022-06-15] MEDS: LISINOPRIL 20 MG TABLET PO SCH ×2 (08:50→20:39)
[2022-06-15] MEDS: ENOXAPARIN 40 MG/0.4 ML SYRINGE SQ SCH (08:51)
[2022-06-15] MEDS: cefTRIAXone 1 GM VIAL IV SCH (08:54)
--- NOTE | 2022-06-15 09:48 | XRay Report ---
CLINICAL INFORMATION: Follow-up left lung pneumonia COMPARISON: 06/14/2022 TECHNIQUE: Portable FINDINGS: The heart size, mediastinum and pulmonary vessels are unremarkable. Large patchy infiltrate in the left mid and lower lung shows slight improved aeration in the mid lung component. Small patchy infiltrate has developed in the right lung base.. There are no effusions. The bones and soft tissues are within normal limits. IMPRESSION: Large patchy infiltrate in the left mid and lower lung with slight improvement midlung component since comparison exam yesterday. New small patchy infiltrate has developed in the right base Interpreted and Authenticated by: Chetan Timmons 06/15/22
[2022-06-15 10:24] LABS: ALT/SGPT 27 U/L (<40); AST/SGOT 51 U/L (<32); Albumin 2.2 gm/dL (3.2-5.2); Albumin/Globulin Ratio 0.7 (1.0-2.3); Alkaline Phosphatase 75 U/L (39-117); Basophils # (Auto) 0.12 K/mcL (0.00-0.30); Basophils % (Auto) 0.7 % (0.0-2.0); Bilirubin,Direct 0.3 mg/dL (<0.3); Bilirubin,Total 0.5 mg/dL (0.1-1.0); Blood Urea Nitrogen 26 mg/dL (8-23); Calcium 8.2 mg/dL (8.6-10.4); Carbon Dioxide 20 mmol/L (22-30); Chloride 95 mmol/L (96-108); Eosinophils # (Auto) 0.05 K/mcL (0.00-0.70); Eosinophils % (Auto) 0.3 % (0.0-7.0); Globulin 3.2 gm/dL (2.2-3.7); Glomerular Filtration Rate 72; Glucose 124 mg/dL (70-105); Hematocrit 34.1 % (34.1-44.9); Hemoglobin 11.3 g/dL (11.2-15.7); Lactate Dehydrogenase 280 U/L (135-225); Lymphocytes # (Auto) 1.33 K/mcL (1.50-4.80); Lymphocytes % (Auto) 7.5 % (15.5-49.0); Mean Cell Volume 94.2 fL (80.0-100.0); Mean Corpuscular HGB Conc 33.1 g/dL (31.0-36.0); Mean Platelet Volume 10.2 fL (8.8-12.5); Monocytes # (Auto) 1.52 K/mcL (0.10-0.90); Monocytes % (Auto) 8.6 % (1.0-12.0); Neutrophils % (Auto) 80.3 % (38.0-78.0); Platelet Count 172 K/mcL (140-440); RBC 3.62 M/mcL (3.59-5.38); Red Cell Distribution Width 15.6 % (11.5-14.5); Triglycerides 250 mg/dL (<150); Uric Acid 6.9 mg/dL (2.5-8.0); WBC 17.8 K/mcL (4.5-11.0)
[2022-06-15] MEDS: PHOSPHORUS 250 MG TABLET PO SCH ×2 (10:41→20:39)
[2022-06-15] MEDS: AZITHROMYCIN 500 MG in DEXTROSE 5% IN WATER 250 ML IV SCH (11:53)
[2022-06-15] MEDS: guaiFENesin 600 MG TAB.SR.12H PO PRN ×2 (14:45→20:40)
[2022-06-15] MEDS: AMITRIPTYLINE 10 MG TABLET PO SCH (20:39)
[2022-06-15] MEDS: ACETAMINOPHEN 325 MG TABLET PO PRN (20:40)
[2022-06-15] MEDS: SIMVASTATIN 20 MG TABLET PO SCH (20:40)
[2022-06-16] MEDS: 0.9 % SODIUM CHLORIDE 10 ML SYRINGE IV SCH ×3 (06:00→20:35)
[2022-06-16 06:38] LABS: Basophils # (Auto) 0.19 K/mcL (0.00-0.30); Basophils % (Auto) 0.9 % (0.0-2.0); Eosinophils # (Auto) 0.11 K/mcL (0.00-0.70); Eosinophils % (Auto) 0.5 % (0.0-7.0); Hematocrit 32.2 % (34.1-44.9); Lymphocytes # (Auto) 1.82 K/mcL (1.50-4.80); Lymphocytes % (Auto) 8.7 % (15.5-49.0); Mean Corpuscular HGB Conc 34.2 g/dL (31.0-36.0); Mean Platelet Volume 10.2 fL (8.8-12.5); Monocytes # (Auto) 1.85 K/mcL (0.10-0.90); Monocytes % (Auto) 8.9 % (1.0-12.0); Neutrophils % (Auto) 73.4 % (38.0-78.0); Platelet Count 189 K/mcL (140-440); Red Cell Distribution Width 15.8 % (11.5-14.5); WBC 20.9 K/mcL (4.5-11.0)
[2022-06-16 06:55] LABS: ALT/SGPT 28 U/L (<40); AST/SGOT 53 U/L (<32); Albumin 2.2 gm/dL (3.2-5.2); Albumin/Globulin Ratio 0.7 (1.0-2.3); Alkaline Phosphatase 95 U/L (39-117); Bilirubin,Direct 0.4 mg/dL (<0.3); Bilirubin,Total 0.6 mg/dL (0.1-1.0); Blood Urea Nitrogen 21 mg/dL (8-23); Calcium 8.1 mg/dL (8.6-10.4); Carbon Dioxide 23 mmol/L (22-30); Chloride 96 mmol/L (96-108); Globulin 3.1 gm/dL (2.2-3.7); Glomerular Filtration Rate 88; Glucose 105 mg/dL (70-105); Lactate Dehydrogenase 258 U/L (135-225); Phosphorous 2.2 mg/dL (2.5-4.5); Triglycerides 188 mg/dL (<150); Uric Acid 5.3 mg/dL (2.5-8.0)
[2022-06-16] MEDS: LEVOTHYROXINE 100 MCG TABLET PO SCH (07:11)
[2022-06-16] MEDS: INSULIN LISPRO 1 UNIT/0.01 ML UNIT SQ SCH ×4 (07:11→21:18)
[2022-06-16] MEDS: OMEPRAZOLE 20 MG CAPSULE PO SCH (07:11)
--- NOTE | 2022-06-16 07:27 | EKG ---
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
--- NOTE | 2022-06-16 07:28 | EKG ---
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
[2022-06-16] MEDS: ENOXAPARIN 40 MG/0.4 ML SYRINGE SQ SCH (08:19)
[2022-06-16] MEDS: CITALOPRAM 20 MG TABLET PO SCH (08:19)
[2022-06-16] MEDS: cefTRIAXone 1 GM VIAL IV SCH (08:20)
[2022-06-16] MEDS: PHOSPHORUS 250 MG TABLET PO SCH (08:20)
[2022-06-16] MEDS: LISINOPRIL 20 MG TABLET PO SCH ×2 (08:20→20:35)
[2022-06-16] MEDS: guaiFENesin 600 MG TAB.SR.12H PO PRN ×2 (08:24→21:44)
[2022-06-16] MEDS: IPRATROPIUM/ALBUTEROL 3 ML AMPUL.NEB NEB SCH ×3 (10:15→21:00)
--- NOTE | 2022-06-16 10:21 | Internal Med Progress Note ---
SUBJECTIVE Subjective Patient information: Note initiated : 06/16/22 at 10:19 am Service Date, if different from initiated Date: [] Patient: Sharyn Strickland 77 y/o F admitted on 06/14/22 for shortness of breath, hypoxia. Chief Complaint: [SOB] Principal diagnosis: Viral/bacterial pneumonia, Acute hypoxemic resp failure Interval history: The patient is doing much better per my discussion with RN. She has not required BiPAP. Yesterday, she could only go 10 minutes without BiPAP. Constitutional Vitals: Vital Signs Temp Pulse Resp BP Pulse Ox O2 Del Method O2 Flow Rate 97.2 F 110 H 18 130/97 92 Room Air 6 06/16/22 08:01 06/16/22 10:16 06/16/22 10:16 06/16/22 10:01 06/16/22 10:16 06/16/22 10:16 06/15/22 02:55 Period Temp Pulse Resp BP Sys/Laughlin Pulse Ox O2 Del Method O2 Flow Rate Last 24 Hr 96.8 F-98.7 F 76-118 14-31 101-145/58-100 91-100 BiPAP-Room Air Intake and Output 06/15/22 06/16/22 06/16/22 19:59 03:59 11:59 Intake Total 1080 460 460 Output Total 565 449 430 Balance 515 11 30 Weight 77.649 kg 80.331 kg Intake & Output: Intake & Output 06/15/22 06/16/22 06/16/22 19:59 03:59 11:59 Intake Total 1080 460 460 Output Total 565 449 430 Balance 515 11 30 Weight 77.649 kg 80.331 kg Intake: IV 250 Zithromax 500 mg In Dextrose 5% 250 in Water 250 ml @ 250 mls/hr IV Q24H [facility] Rx#:[id number] Oral 830 460 460 Output: Urine Catheter Amount 565 449 430 Other: Meal Dinner Percent of Meal Consumed 100% Feeding Ability Assist with Tray Set Up Urine Appearance Clear Clear Clear Uretheral (Miller) Clear Clear Clear Urine Color Dark Yellow Dark Yellow Dark Yellow Uretheral (Miller) Dark Yellow Dark Yellow Dark Yellow Urine Odor Normal Normal Stool Size Copious Moderate Stool Color Green Green Stool Consistency Liquid Liquid Loose Loose # of times incontinent of 1 Bowels Head Head exam: Present atraumatic and normal inspection Eye Eye exam: Present normal appearance ENT ENT exam: Present mucous membranes moist, normal exam and normal external ear exam Neck Neck exam: Present normal inspection Respiratory Respiratory exam: Present accessory muscle use, rhonchi and wheezes; Absent respiratory distress Cardiovascular Cardiovascular exam: Present normal rate and rhythm GI/Abdominal GI/Abdominal exam: Present normal bowel sounds Back Exam Back exam: Present normal inspection Neurological Exam Neurological exam: Present alert and oriented X3 Skin Skin exam: Present intact and warm OBJ DATA Labs 06/16/22 05:23 06/16/22 05:23 Labs: Abnormal Lab Results 06/16/22 06/16/22 06/16/22 05:24 05:23 05:23 WBC 20.9 H RBC 3.50 L Hgb 11.0 L Hct 32.2 L RDW 15.8 H Immature Gran % (Auto) 7.6 H Neut % (Auto) Lymph % (Auto) 8.7 L Lymph # (Auto) [place] # (Auto) 1.85 H Immature Gran # 1.59 H Absolute Neutrophils 15.31 H POC pO2 POC VBG pH POC VBG pO2 POC VBG HCO3 POC VBG Total CO2 POC Venous O2 Sat POC VBG Base Excess VBG Lactic Acid Sodium 128 L Chloride Carbon Dioxide Anion Gap BUN Glucose Calcium 8.1 L Phosphorus 2.2 L Direct Bilirubin 0.4 H GGT 89 H AST 53 H Lactate Dehydrogenase 258 H Troponin T C-Reactive Protein 12.90 H NT-Pro-B Natriuret Pep Total Protein 5.3 L Albumin 2.2 L Albumin/Globulin Ratio 0.7 L Triglycerides 188 H Procalcitonin 4.57 H Urine Protein Urine Occult Blood Urine WBC Hyaline Casts Granular Casts Urine Mucus POC Troponin I 06/15/22 06/15/22 06/15/22 11:58 04:58 04:58 WBC RBC Hgb Hct RDW Immature Gran % (Auto) Neut % (Auto) Lymph % (Auto) Lymph # (Auto) [place] # (Auto) Immature Gran # Absolute Neutrophils POC pO2 77 L POC VBG pH POC VBG pO2 POC VBG HCO3 POC VBG Total CO2 POC Venous O2 Sat POC VBG Base Excess VBG Lactic Acid Sodium 124 L Chloride 95 L Carbon Dioxide 20 L Anion Gap BUN 26 H Glucose 124 H Calcium 8.2 L Phosphorus 2.0 L Direct Bilirubin 0.3 H GGT 88 H AST 51 H Lactate Dehydrogenase 280 H Troponin T 0.05 H* C-Reactive Protein NT-Pro-B Natriuret Pep Total Protein 5.4 L Albumin 2.2 L Albumin/Globulin Ratio 0.7 L Triglycerides 250 H Procalcitonin Urine Protein Urine Occult Blood Urine WBC Hyaline Casts Granular Casts Urine Mucus POC Troponin I 06/15/22 06/14/22 06/14/22 04:58 17:45 16:05 WBC 17.8 H RBC Hgb Hct RDW 15.6 H Immature Gran % (Auto) 2.6 H Neut % (Auto) 80.3 H Lymph % (Auto) 7.5 L Lymph # (Auto) 1.33 L [place] # (Auto) 1.52 H Immature Gran # 0.46 H Absolute Neutrophils 14.28 H POC pO2 POC VBG pH POC VBG pO2 POC VBG HCO3 POC VBG Total CO2 POC Venous O2 Sat POC VBG Base Excess VBG Lactic Acid 2.3 H Sodium Chloride Carbon Dioxide Anion Gap BUN Glucose Calcium Phosphorus Direct Bilirubin GGT AST Lactate Dehydrogenase Troponin T C-Reactive Protein NT-Pro-B Natriuret Pep Total Protein Albumin Albumin/Globulin Ratio Triglycerides Procalcitonin Urine Protein >=300 A Urine Occult Blood Small A Urine WBC 5 H Hyaline Casts 3 H Granular Casts 4 H Urine Mucus Mod A POC Troponin I 06/14/22 06/14/22 06/14/22 15:19 15:17 12:42 WBC RBC Hgb Hct RDW Immature Gran % (Auto) Neut % (Auto) Lymph % (Auto) Lymph # (Auto) [place] # (Auto) Immature Gran # Absolute Neutrophils POC pO2 POC VBG pH 7.30 L POC VBG pO2 53 H POC VBG HCO3 20.6 L POC VBG Total CO2 22.0 L POC Venous O2 Sat 83.0 H POC VBG Base Excess -6.0 L VBG Lactic Acid 2.8 H Sodium Chloride Carbon Dioxide Anion Gap BUN Glucose Calcium Phosphorus Direct Bilirubin GGT AST Lactate Dehydrogenase Troponin T C-Reactive Protein NT-Pro-B Natriuret Pep Total Protein Albumin Albumin/Globulin Ratio Triglycerides Procalcitonin Urine Protein Urine Occult Blood Urine WBC Hyaline Casts Granular Casts Urine Mucus POC Troponin I 0.45 H 0.29 H 06/14/22 06/14/22 06/14/22 12:42 12:35 12:35 WBC RBC Hgb Hct RDW Immature Gran % (Auto) Neut % (Auto) Lymph % (Auto) Lymph # (Auto) [place] # (Auto) Immature Gran # Absolute Neutrophils POC pO2 POC VBG pH 7.29 L POC VBG pO2 POC VBG HCO3 23.2 L POC VBG Total CO2 POC Venous O2 Sat POC VBG Base Excess -3.0 L VBG Lactic Acid 4.7 H* Sodium Chloride Carbon Dioxide Anion Gap BUN Glucose Calcium Phosphorus Direct Bilirubin GGT AST Lactate Dehydrogenase Troponin T C-Reactive Protein 24.10 H NT-Pro-B Natriuret Pep Total Protein Albumin Albumin/Globulin Ratio Triglycerides Procalcitonin 11.45 H Urine Protein Urine Occult Blood Urine WBC Hyaline Casts Granular Casts Urine Mucus POC Troponin I 06/14/22 06/14/22 12:35 12:35 WBC 23.4 H RBC Hgb Hct RDW 15.3 H Immature Gran % (Auto) 3.1 H Neut % (Auto) 81.9 H Lymph % (Auto) 7.4 L Lymph # (Auto) [place] # (Auto) 1.65 H Immature Gran # 0.72 H Absolute Neutrophils 19.17 H POC pO2 POC VBG pH POC VBG pO2 POC VBG HCO3 POC VBG Total CO2 POC Venous O2 Sat POC VBG Base Excess VBG Lactic Acid Sodium 121 L Chloride 84 L Carbon Dioxide 20 L Anion Gap 17.0 H BUN Glucose 172 H Calcium Phosphorus Direct Bilirubin GGT AST 64 H Lactate Dehydrogenase Troponin T C-Reactive Protein NT-Pro-B Natriuret Pep 65856.0 H Total Protein Albumin 3.1 L Albumin/Globulin Ratio 0.9 L Triglycerides Procalcitonin Urine Protein Urine Occult Blood Urine WBC Hyaline Casts Granular Casts Urine Mucus POC Troponin I Meds: Medications Acetaminophen (Acetaminophen 325 Mg Tablet) 650 mg PO Q6HP PRN; Protocol PRN Reason: Per Pain Protocol/Fever > 101 Last Admin: 06/15/22 20:40 Dose: 650 mg Albuterol/Ipratropium (Ipratropium/Albuterol 3 Ml Ampul.Neb) 3 ml NEB Q6H SHARON Last Admin: 06/16/22 10:15 Dose: 3 ml Amitriptyline HCl (Amitriptyline 10 Mg Tablet) 10 mg PO HS SHARON Last Admin: 06/15/22 20:39 Dose: 10 mg Budesonide (Budesonide 0.5 Mg/2 Ml Ampul.Neb) 0.5 mg NEB Q12 SHARON Ceftriaxone Sodium (Ceftriaxone 1 Gm Vial) 1 gm IV Q24H [facility] Last Admin: 06/16/22 08:20 Dose: 1 gm Citalopram Hydrobromide (Citalopram 20 Mg Tablet) 20 mg PO QDAY [facility] Last Admin: 06/16/22 08:19 Dose: 20 mg Dextrose (Dextrose 50% 50 Ml Vial) 0 ml IV UD PRN PRN Reason: Per Sliding Scale Diagnostic Test (Pha) (Accu-Chek 1 Each Strip) 1 each FS ACHS [facility] Last Admin: 06/16/22 07:10 Dose: 1 each Enoxaparin Sodium (Enoxaparin 40 Mg/0.4 Ml Syringe) 40 mg SQ DAILY [facility] Last Admin: 06/16/22 08:19 Dose: 40 mg Glucose (Dextrose 31 Gm Oral.Susp) 15 gm PO PRN PRN PRN Reason: Hypoglycemia Guaifenesin (Guaifenesin 600 Mg Tab.Sr.12h) 1,200 mg PO BIDP PRN PRN Reason: Congestion Last Admin: 06/16/22 08:24 Dose: 1,200 mg Azithromycin 500 mg/ Dextrose 250 mls @ 250 mls/hr IV Q24H [facility]; Protocol Stop: 06/16/22 20:59 Last Infusion: 06/15/22 13:06 Dose: Infused Magnesium Sulfate (Magnesium Sulfate) 2 gm in 50 mls @ 50 mls/hr IV UD PRN PRN Reason: Magnesium </= 1.6 Potassium Chloride 40 meq/ (Dextrose) 520 mls @ 130 mls/hr IV UD PRN PRN Reason: Potassium < 3 Insulin Human Lispro (Insulin Lispro 1 Unit/0.01 Ml Unit) 0 unit SQ [facility]; Protocol Last Admin: 06/16/22 07:11 Dose: Not Given Labetalol HCl (Labetalol 5 Mg/Ml Ml) 0 mg IV Q2HP PRN PRN Reason: Hypertension Last Admin: 06/14/22 23:26 Dose: 5 mg Levothyroxine Sodium (Levothyroxine 100 Mcg Tablet) 100 mcg PO QAMAC [facility] Last Admin: 06/16/22 07:11 Dose: 100 mcg Lisinopril (Lisinopril 20 Mg Tablet) 20 mg PO BID [facility] Last Admin: 06/16/22 08:20 Dose: 20 mg Omeprazole (Omeprazole 20 Mg Capsule) 20 mg PO QAMAC [facility] Last Admin: 06/16/22 07:11 Dose: 20 mg Ondansetron HCl (Ondansetron 4 Mg/2 Ml Vial) 4 mg IV Q4HP PRN PRN Reason: Nausea And Vomiting Last Admin: 06/14/22 22:14 Dose: 4 mg Pneumococcal Polyvalent Vaccine (Pneumococcal 23-Barbra P-Sac Vac 0.5 Ml Syringe) 0.5 ml IM .ONCE ONE Stop: 06/17/22 09:01 Potassium Chloride (Potassium Chloride 20 Meq Tablet) 40 meq PO UD PRN PRN Reason: Potassium < 3 Potassium Chloride (Potassium Chloride 20 Meq Tablet) 40 meq PO UD PRN PRN Reason: Potssium is 3-3.5 Last Admin: 06/16/22 07:11 Dose: 40 meq Simvastatin (Simvastatin 20 Mg Tablet) 20 mg PO HS [facility] Last Admin: 06/15/22 20:40 Dose: 20 mg Sodium Chloride (0.9 % Sodium Chloride 10 Ml Syringe) 10 ml IV Q8 [facility] Last Admin: 06/16/22 06:00 Dose: 10 ml A/P Narrative A/P Narrative: A: *Acute hypoxic respiratory failure: 2/2 PNA -currently on bipap *PNA: -strep/covid/flu neg -RSV(+), elevated PCT *Severe sepsis: 2/2 above -leukocytosis/tachycardia/tachypnea/Fever *Lactic acidosis: 2/2 above *Hyponatremia/hypophosphatemia: *Volume depletion: *Demand ischemia: f/u troponin this AM decreased *DM2: *HTN/HLD: *Depression/anxiety: *Hypothyroidism: *GERD: P: -started pulmicort and make duonebs scheduled 06/16 -weaned off bipap 06/16 -CTA chest pending -IV antibiotics, pending BC/SC -s/p IVF, follow-up lactate -Monitor UOP, fluid balance closely -Follow-up and trend sodium and other electrolytes, replete as necessary -IS/Acapella, RT, nebs as needed -O2 support and wean as able -Strep/RVP pending -Procalcitonin pending -f/u trop -echo to eval for stress cardiomyopathy -SSI -cont home ACEI -PT/OT -CM for placement needs -ppx: Lovenox / home ppi Time Spent With Patient Time: Total time spent is greater than 50% in coordination of care (as documented) at patient's floor/unit and/or counseling patient: Subsequent: Total time with patient: 35 - 49 minutes
[2022-06-16] MEDS ORDERED: IOPAMIDOL 100 ML BOTTLE IV ONE (10:53)
[2022-06-16] MEDS: AZITHROMYCIN 500 MG in DEXTROSE 5% IN WATER 250 ML IV SCH (11:11)
--- NOTE | 2022-06-16 12:35 | Cat Scan Report ---
CLINICAL INFORMATION: Shortness of breath and hypoxia history of breast cancer COMPARISON: None. TECHNIQUE: 80ml of Isovue-370 were injected intravenously. Using SmartPrep to maximize pulmonary artery opacification, .625mm helical slices were obtained from the lung apices through the lung bases. Following reconstruction, 2.5 mm sagittal, coronal, and axial reformations were processed. The exam was reviewed at mediastinal, lung, and bone windows. The exam was performed using radiation dose optimization techniques including, but not limited to, automated exposure control, adjustment of the mA and/or kV according to patient size and use of iterative reconstruction technique. FINDINGS: Pulmonary parenchymal windows show large alveolar infiltrate throughout the posterior left upper and posterior left lower lobe and a moderate patchy groundglass alveolar infiltrate in the posterior medial right lower lobe. Moderate tree-in-bud infiltrate present posterior segment of the right upper lobe. Moderate left and small right pleural effusions noted. Mediastinal windows show the heart is moderately enlarged with new small pericardial effusion.. The pulmonary arteries are normal diameter and well-opacified without evidence of embolus. Thoracic aorta is also normal diameter and well-opacified. Mildly enlarged lymph nodes present in the mid and lower mediastinum are likely benign reactive lymph nodes related to infection. Esophagus is grossly normal. The thyroid is unremarkable. Bones and soft tissues the chest wall are normal. Images through the superior abdomen are unremarkable. IMPRESSION: 1. No evidence of pulmonary embolus 2. Large alveolar infiltrates in the posterior left upper and lower lobes moderate infiltrate posterior right lower lobe and small tree-in-bud infiltrate posterior right upper lobe. Suspect infection or aspiration. 3. No evidence of recurrent malignancy or metastatic disease. 4. Moderate cardiomegaly with small pericardial effusion-increased from the previous exam Interpreted and Authenticated by: Chetan Timmons 06/16/22
[2022-06-16] MEDS: ACETAMINOPHEN 325 MG TABLET PO PRN (14:08)
[2022-06-16] MEDS: AMITRIPTYLINE 10 MG TABLET PO SCH (20:35)
[2022-06-16] MEDS: SIMVASTATIN 20 MG TABLET PO SCH (20:35)
[2022-06-16] MEDS: BUDESONIDE 0.5 MG/2 ML AMPUL.NEB NEB SCH (21:00)
[2022-06-17] MEDS: IPRATROPIUM/ALBUTEROL 3 ML AMPUL.NEB NEB SCH ×4 (02:55→19:10)
[2022-06-17] MEDS: 0.9 % SODIUM CHLORIDE 10 ML SYRINGE IV SCH ×3 (06:00→21:34)
--- NOTE | 2022-06-17 06:38 | Internal Med Progress Note ---
SUBJECTIVE Subjective Patient information: Note initiated : 06/17/22 at 6:37 am Service Date, if different from initiated Date: [] Patient: Sharyn Strickland 77 y/o F admitted on 06/14/22 for shortness of breath, hypoxia. Chief Complaint: [] Principal diagnosis: Viral/bacterial pneumonia, Acute hypoxemic resp failure Interval history: Patient was able to remain off BiPAP yesterday, however has needed it during the night. Constitutional Vitals: Vital Signs Temp Pulse Resp BP Pulse Ox O2 Del Method O2 Flow Rate 96.7 F L 89 18 127/74 93 BiPAP 2 06/17/22 04:01 06/17/22 06:01 06/17/22 06:01 06/17/22 06:01 06/17/22 06:01 06/17/22 06:01 06/17/22 04:01 Period Temp Pulse Resp BP Sys/Laughlin Pulse Ox O2 Del Method O2 Flow Rate Last 24 Hr 96.7 F-98.5 F 80-113 15-36 107-150/58-97 88-100 BiPAP-Room Air 2-2 Intake and Output 06/16/22 06/17/22 06/17/22 19:59 03:59 11:59 Intake Total 1490 480 400 Output Total 910 625 325 Balance 580 -145 75 Weight 76.204 kg Intake & Output: Intake & Output 06/16/22 06/17/22 06/17/22 19:59 03:59 11:59 Intake Total 1490 480 400 Output Total 910 625 325 Balance 580 -145 75 Weight 76.204 kg Intake: Nourishment/Supplement quantity 240 (ml) IV 250 Zithromax 500 mg In Dextrose 5% 250 in Water 250 ml @ 250 mls/hr IV Q24H [facility] Rx#:[id number] Oral 1000 480 400 Output: Urine Catheter Amount 910 625 325 Other: Meal Dinner Percent of Meal Consumed 50% Feeding Ability Independent Nourishment/Supplement name carnation Urine Appearance Cloudy Clear Clear Uretheral (Miller) Clear Clear Urine Color Yellow Dark Yellow Dark Yellow Uretheral (Miller) Yellow Yellow Stool Size Moderate Moderate Stool Color Green Green Brown Green Stool Consistency Liquid Loose Loose Loose # Bowel Movements 1 1 Head Head exam: Present atraumatic and normal inspection Eye Eye exam: Present normal appearance ENT ENT exam: Present mucous membranes moist, normal exam and normal external ear exam Neck Neck exam: Present normal inspection Respiratory Respiratory exam: Present accessory muscle use, rhonchi and wheezes; Absent respiratory distress Cardiovascular Cardiovascular exam: Present normal rate and rhythm GI/Abdominal GI/Abdominal exam: Present normal bowel sounds Back Exam Back exam: Present normal inspection Neurological Exam Neurological exam: Present alert and oriented X3 Skin Skin exam: Present intact and warm OBJ DATA Labs 06/16/22 05:23 06/16/22 05:23 Labs: Abnormal Lab Results 06/16/22 06/16/22 06/16/22 05:24 05:23 05:23 WBC 20.9 H RBC 3.50 L Hgb 11.0 L Hct 32.2 L RDW 15.8 H Immature Gran % (Auto) 7.6 H Neut % (Auto) Lymph % (Auto) 8.7 L Lymph # (Auto) [place] # (Auto) 1.85 H Immature Gran # 1.59 H Absolute Neutrophils 15.31 H POC pO2 POC VBG pH POC VBG pO2 POC VBG HCO3 POC VBG Total CO2 POC Venous O2 Sat POC VBG Base Excess VBG Lactic Acid Sodium 128 L Chloride Carbon Dioxide Anion Gap BUN Glucose Calcium 8.1 L Phosphorus 2.2 L Direct Bilirubin 0.4 H GGT 89 H AST 53 H Lactate Dehydrogenase 258 H Troponin T C-Reactive Protein 12.90 H NT-Pro-B Natriuret Pep Total Protein 5.3 L Albumin 2.2 L Albumin/Globulin Ratio 0.7 L Triglycerides 188 H Procalcitonin 4.57 H Urine Protein Urine Occult Blood Urine WBC Hyaline Casts Granular Casts Urine Mucus POC Troponin I 06/15/22 06/15/22 06/15/22 11:58 04:58 04:58 WBC RBC Hgb Hct RDW Immature Gran % (Auto) Neut % (Auto) Lymph % (Auto) Lymph # (Auto) [place] # (Auto) Immature Gran # Absolute Neutrophils POC pO2 77 L POC VBG pH POC VBG pO2 POC VBG HCO3 POC VBG Total CO2 POC Venous O2 Sat POC VBG Base Excess VBG Lactic Acid Sodium 124 L Chloride 95 L Carbon Dioxide 20 L Anion Gap BUN 26 H Glucose 124 H Calcium 8.2 L Phosphorus 2.0 L Direct Bilirubin 0.3 H GGT 88 H AST 51 H Lactate Dehydrogenase 280 H Troponin T 0.05 H* C-Reactive Protein NT-Pro-B Natriuret Pep Total Protein 5.4 L Albumin 2.2 L Albumin/Globulin Ratio 0.7 L Triglycerides 250 H Procalcitonin Urine Protein Urine Occult Blood Urine WBC Hyaline Casts Granular Casts Urine Mucus POC Troponin I 06/15/22 06/14/22 06/14/22 04:58 17:45 16:05 WBC 17.8 H RBC Hgb Hct RDW 15.6 H Immature Gran % (Auto) 2.6 H Neut % (Auto) 80.3 H Lymph % (Auto) 7.5 L Lymph # (Auto) 1.33 L [place] # (Auto) 1.52 H Immature Gran # 0.46 H Absolute Neutrophils 14.28 H POC pO2 POC VBG pH POC VBG pO2 POC VBG HCO3 POC VBG Total CO2 POC Venous O2 Sat POC VBG Base Excess VBG Lactic Acid 2.3 H Sodium Chloride Carbon Dioxide Anion Gap BUN Glucose Calcium Phosphorus Direct Bilirubin GGT AST Lactate Dehydrogenase Troponin T C-Reactive Protein NT-Pro-B Natriuret Pep Total Protein Albumin Albumin/Globulin Ratio Triglycerides Procalcitonin Urine Protein >=300 A Urine Occult Blood Small A Urine WBC 5 H Hyaline Casts 3 H Granular Casts 4 H Urine Mucus Mod A POC Troponin I 06/14/22 06/14/22 06/14/22 15:19 15:17 12:42 WBC RBC Hgb Hct RDW Immature Gran % (Auto) Neut % (Auto) Lymph % (Auto) Lymph # (Auto) [place] # (Auto) Immature Gran # Absolute Neutrophils POC pO2 POC VBG pH 7.30 L POC VBG pO2 53 H POC VBG HCO3 20.6 L POC VBG Total CO2 22.0 L POC Venous O2 Sat 83.0 H POC VBG Base Excess -6.0 L VBG Lactic Acid 2.8 H Sodium Chloride Carbon Dioxide Anion Gap BUN Glucose Calcium Phosphorus Direct Bilirubin GGT AST Lactate Dehydrogenase Troponin T C-Reactive Protein NT-Pro-B Natriuret Pep Total Protein Albumin Albumin/Globulin Ratio Triglycerides Procalcitonin Urine Protein Urine Occult Blood Urine WBC Hyaline Casts Granular Casts Urine Mucus POC Troponin I 0.45 H 0.29 H 06/14/22 06/14/22 06/14/22 12:42 12:35 12:35 WBC RBC Hgb Hct RDW Immature Gran % (Auto) Neut % (Auto) Lymph % (Auto) Lymph # (Auto) [place] # (Auto) Immature Gran # Absolute Neutrophils POC pO2 POC VBG pH 7.29 L POC VBG pO2 POC VBG HCO3 23.2 L POC VBG Total CO2 POC Venous O2 Sat POC VBG Base Excess -3.0 L VBG Lactic Acid 4.7 H* Sodium Chloride Carbon Dioxide Anion Gap BUN Glucose Calcium Phosphorus Direct Bilirubin GGT AST Lactate Dehydrogenase Troponin T C-Reactive Protein 24.10 H NT-Pro-B Natriuret Pep Total Protein Albumin Albumin/Globulin Ratio Triglycerides Procalcitonin 11.45 H Urine Protein Urine Occult Blood Urine WBC Hyaline Casts Granular Casts Urine Mucus POC Troponin I 06/14/22 06/14/22 12:35 12:35 WBC 23.4 H RBC Hgb Hct RDW 15.3 H Immature Gran % (Auto) 3.1 H Neut % (Auto) 81.9 H Lymph % (Auto) 7.4 L Lymph # (Auto) [place] # (Auto) 1.65 H Immature Gran # 0.72 H Absolute Neutrophils 19.17 H POC pO2 POC VBG pH POC VBG pO2 POC VBG HCO3 POC VBG Total CO2 POC Venous O2 Sat POC VBG Base Excess VBG Lactic Acid Sodium 121 L Chloride 84 L Carbon Dioxide 20 L Anion Gap 17.0 H BUN Glucose 172 H Calcium Phosphorus Direct Bilirubin GGT AST 64 H Lactate Dehydrogenase Troponin T C-Reactive Protein NT-Pro-B Natriuret Pep 81889.0 H Total Protein Albumin 3.1 L Albumin/Globulin Ratio 0.9 L Triglycerides Procalcitonin Urine Protein Urine Occult Blood Urine WBC Hyaline Casts Granular Casts Urine Mucus POC Troponin I Meds: Medications Acetaminophen (Acetaminophen 325 Mg Tablet) 650 mg PO Q6HP PRN; Protocol PRN Reason: Per Pain Protocol/Fever > 101 Last Admin: 06/16/22 14:08 Dose: 650 mg Albuterol/Ipratropium (Ipratropium/Albuterol 3 Ml Ampul.Neb) 3 ml NEB Q6H [facility] Last Admin: 06/17/22 02:55 Dose: 3 ml Amitriptyline HCl (Amitriptyline 10 Mg Tablet) 10 mg PO HS [facility] Last Admin: 06/16/22 20:35 Dose: 10 mg Budesonide (Budesonide 0.5 Mg/2 Ml Ampul.Neb) 0.5 mg NEB Q12 [facility] Last Admin: 06/16/22 21:00 Dose: 0.5 mg Ceftriaxone Sodium (Ceftriaxone 1 Gm Vial) 1 gm IV Q24H [facility] Last Admin: 06/16/22 08:20 Dose: 1 gm Citalopram Hydrobromide (Citalopram 20 Mg Tablet) 20 mg PO QDAY [facility] Last Admin: 06/16/22 08:19 Dose: 20 mg Dextrose (Dextrose 50% 50 Ml Vial) 0 ml IV UD PRN PRN Reason: Per Sliding Scale Diagnostic Test (Pha) (Accu-Chek 1 Each Strip) 1 each FS [facility] Last Admin: 06/16/22 21:17 Dose: 1 each Enoxaparin Sodium (Enoxaparin 40 Mg/0.4 Ml Syringe) 40 mg SQ DAILY [facility] Last Admin: 06/16/22 08:19 Dose: 40 mg Glucose (Dextrose 31 Gm Oral.Susp) 15 gm PO PRN PRN PRN Reason: Hypoglycemia Guaifenesin (Guaifenesin 600 Mg Tab.Sr.12h) 1,200 mg PO BIDP PRN PRN Reason: Congestion Last Admin: 06/16/22 21:44 Dose: 1,200 mg Magnesium Sulfate (Magnesium Sulfate) 2 gm in 50 mls @ 50 mls/hr IV UD PRN PRN Reason: Magnesium </= 1.6 Potassium Chloride 40 meq/ (Dextrose) 520 mls @ 130 mls/hr IV UD PRN PRN Reason: Potassium < 3 Insulin Human Lispro (Insulin Lispro 1 Unit/0.01 Ml Unit) 0 unit SQ [facility]; Protocol Last Admin: 06/16/22 21:18 Dose: Not Given Labetalol HCl (Labetalol 5 Mg/Ml Ml) 0 mg IV Q2HP PRN PRN Reason: Hypertension Last Admin: 06/14/22 23:26 Dose: 5 mg Levothyroxine Sodium ([facility]othy[facility] 100 Mcg Tablet) [facility] Last Admin: 06/16/22 07:11 Dose: 100 mcg Lisinopril (Lisinopril 20 Mg Tablet) 20 mg PO BID [facility] Last Admin: 06/16/22 20:35 Dose: 20 mg Omeprazole (Omeprazole 20 Mg Capsule) [facility] Last Admin: 06/16/22 07:11 Dose: 20 mg Ondansetron HCl (Ondansetron 4 Mg/2 Ml Vial) 4 mg IV Q4HP PRN PRN Reason: Nausea And Vomiting Last Admin: 06/14/22 22:14 Dose: 4 mg Pneumococcal Polyvalent Vaccine (Pneumococcal 23-Barbra P-Sac Vac 0.5 Ml Syringe) 0.5 ml IM .ONCE ONE Stop: 06/17/22 09:01 Potassium Chloride (Potassium Chloride 20 Meq Tablet) 40 meq PO UD PRN PRN Reason: Potassium < 3 Potassium Chloride (Potassium Chloride 20 Meq Tablet) 40 meq PO UD PRN PRN Reason: Potssium is 3-3.5 Last Admin: 06/16/22 07:11 Dose: 40 meq Simvastatin (Simvastatin 20 Mg Tablet) 20 mg PO HS [facility] Last Admin: 06/16/22 20:35 Dose: 20 mg Sodium Chloride (0.9 % Sodium Chloride 10 Ml Syringe) 10 ml IV Q8 [facility] Last Admin: 06/17/22 06:00 Dose: 10 ml A/P Narrative A/P Narrative: A: *Acute hypoxic respiratory failure: 2/2 PNA -currently on bipap *PNA: -strep/covid/flu neg -RSV(+), elevated PCT *Severe sepsis: 2/2 above -leukocytosis/tachycardia/tachypnea/Fever *Lactic acidosis: 2/2 above *Hyponatremia/hypophosphatemia: *Volume depletion: *Demand ischemia: f/u troponin this AM decreased *DM2: *HTN/HLD: *Depression/anxiety: *Hypothyroidism: *GERD: P: -started pulmicort and make duonebs scheduled 06/16 -weaned off bipap 06/16 -CTA chest 06/16-> neg for PE, but "Large alveolar infiltrates in the posterior left upper and lower lobes moderate infiltrate posterior right lower lobe and small tree-in-bud infiltrate posterior right upper lobe. Suspect infection or aspiration." -IV antibiotics, pending BC/SC -s/p IVF, follow-up lactate -Monitor UOP, fluid balance closely -Follow-up and trend sodium and other electrolytes, replete as necessary -IS/Acapella, RT, nebs as needed -O2 support and wean as able -Strep/RVP pending -Procalcitonin pending -f/u trop -echo to eval for stress cardiomyopathy -SSI -cont home ACEI -PT/OT -CM for placement needs -ppx: Lovenox / home ppi Time Spent With Patient Time: Total time spent is greater than 50% in coordination of care (as documented) at patient's floor/unit and/or counseling patient: Subsequent: Total time with patient: 35 - 49 minutes
[2022-06-17] MEDS: INSULIN LISPRO 1 UNIT/0.01 ML UNIT SQ SCH ×4 (07:13→22:04)
[2022-06-17] MEDS: OMEPRAZOLE 20 MG CAPSULE PO SCH (07:14)
[2022-06-17] MEDS: LEVOTHYROXINE 100 MCG TABLET PO SCH (07:14)
[2022-06-17 07:40] LABS: ABG Methemoglobin 0.1 % (0.4-1.5); Total Hemoglobin 12.6 gm/Dl (12.0-15.0); VBG Base Excess 3 (-2-3); VBG HCO3 27.9 mmol/L (24.0-28.0); VBG Oxygen Saturation 67.6 % (40.0-70.0); VBG PCO2 44.6 mmHg (41.0-51.0); VBG PH 7.41 U (7.32-7.42); VBG Total CO2 29.3 mmol/L (25.0-29.0)
[2022-06-17] MEDS: BUDESONIDE 0.5 MG/2 ML AMPUL.NEB NEB SCH ×2 (07:45→19:10)
[2022-06-17 07:46] LABS: Basophils # (Auto) 0.03 K/mcL (0.00-0.30); Basophils % (Auto) 0.2 % (0.0-2.0); Eosinophils # (Auto) 0.21 K/mcL (0.00-0.70); Eosinophils % (Auto) 1.1 % (0.0-7.0); Hematocrit 33.3 % (34.1-44.9); Hemoglobin 11.5 g/dL (11.2-15.7); Lymphocytes # (Auto) 2.01 K/mcL (1.50-4.80); Lymphocytes % (Auto) 10.8 % (15.5-49.0); Mean Cell Volume 90.7 fL (80.0-100.0); Mean Corpuscular HGB Conc 34.5 g/dL (31.0-36.0); Mean Platelet Volume 10.1 fL (8.8-12.5); Monocytes # (Auto) 1.32 K/mcL (0.10-0.90); Monocytes % (Auto) 7.1 % (1.0-12.0); Platelet Count 221 K/mcL (140-440); RBC 3.67 M/mcL (3.59-5.38); Red Cell Distribution Width 15.5 % (11.5-14.5); WBC 18.6 K/mcL (4.5-11.0)
[2022-06-17 08:17] LABS: Blood Urea Nitrogen 13 mg/dL (8-23); Calcium 8.3 mg/dL (8.6-10.4); Carbon Dioxide 25 mmol/L (22-30); Chloride 98 mmol/L (96-108); Glomerular Filtration Rate 94; Glucose 101 mg/dL (70-105)
[2022-06-17] MEDS: ENOXAPARIN 40 MG/0.4 ML SYRINGE SQ SCH (08:36)
[2022-06-17] MEDS: cefTRIAXone 1 GM VIAL IV SCH (08:36)
[2022-06-17] MEDS: AZITHROMYCIN 250 MG TABLET PO SCH (08:36)
[2022-06-17] MEDS: CITALOPRAM 20 MG TABLET PO SCH (08:36)
[2022-06-17] MEDS: LISINOPRIL 20 MG TABLET PO SCH ×2 (08:36→21:35)
[2022-06-17 09:48] LABS: Neutrophils % (Auto) 64.2 % (38.0-78.0)
[2022-06-17] MEDS: ACETAMINOPHEN 325 MG TABLET PO PRN ×2 (11:11→19:07)
[2022-06-17] MEDS: guaiFENesin 600 MG TAB.SR.12H PO PRN (11:11)
[2022-06-17] MEDS: SIMVASTATIN 20 MG TABLET PO SCH (21:34)
[2022-06-17] MEDS: guaiFENesin/DEXTROMETHORPHAN 5ML UD CUP PO PRN (21:34)
[2022-06-17] MEDS: AMITRIPTYLINE 10 MG TABLET PO SCH (21:34)
[2022-06-17] MEDS: BENZONATATE 100 MG CAPSULE PO PRN (21:34)
[2022-06-18] MEDS: IPRATROPIUM/ALBUTEROL 3 ML AMPUL.NEB NEB SCH ×4 (01:08→18:47)
[2022-06-18] MEDS: guaiFENesin/DEXTROMETHORPHAN 5ML UD CUP PO PRN ×6 (01:46→23:58)
[2022-06-18] MEDS: 0.9 % SODIUM CHLORIDE 10 ML SYRINGE IV SCH ×3 (05:39→20:05)
[2022-06-18] MEDS: INSULIN LISPRO 1 UNIT/0.01 ML UNIT SQ SCH ×4 (07:34→20:05)
[2022-06-18] MEDS: OMEPRAZOLE 20 MG CAPSULE PO SCH (07:34)
[2022-06-18] MEDS: LEVOTHYROXINE 100 MCG TABLET PO SCH (07:34)
[2022-06-18] MEDS: LISINOPRIL 20 MG TABLET PO SCH ×2 (08:43→20:04)
[2022-06-18] MEDS: CITALOPRAM 20 MG TABLET PO SCH (08:43)
[2022-06-18] MEDS: AZITHROMYCIN 250 MG TABLET PO SCH (08:43)
[2022-06-18] MEDS: ENOXAPARIN 40 MG/0.4 ML SYRINGE SQ SCH (08:43)
[2022-06-18] MEDS: cefTRIAXone 1 GM VIAL IV SCH (08:43)
[2022-06-18] MEDS: BENZONATATE 100 MG CAPSULE PO PRN ×3 (08:46→23:58)
[2022-06-18 09:14] LABS: Basophils # (Auto) 0.04 K/mcL (0.00-0.30); Basophils % (Auto) 0.3 % (0.0-2.0); Eosinophils # (Auto) 0.19 K/mcL (0.00-0.70); Eosinophils % (Auto) 1.4 % (0.0-7.0); Hematocrit 33.7 % (34.1-44.9); Hemoglobin 11.5 g/dL (11.2-15.7); Lymphocytes # (Auto) 2.01 K/mcL (1.50-4.80); Lymphocytes % (Auto) 14.6 % (15.5-49.0); Mean Cell Volume 91.3 fL (80.0-100.0); Mean Corpuscular HGB Conc 34.1 g/dL (31.0-36.0); Mean Platelet Volume 9.8 fL (8.8-12.5); Monocytes # (Auto) 0.82 K/mcL (0.10-0.90); Platelet Count 276 K/mcL (140-440); RBC 3.69 M/mcL (3.59-5.38); Red Cell Distribution Width 15.9 % (11.5-14.5); WBC 13.7 K/mcL (4.5-11.0)
[2022-06-18 09:49] LABS: Blood Urea Nitrogen 12 mg/dL (8-23); Calcium 8.5 mg/dL (8.6-10.4); Carbon Dioxide 25 mmol/L (22-30); Chloride 98 mmol/L (96-108); Glomerular Filtration Rate 94; Glucose 105 mg/dL (70-105)
[2022-06-18 10:26] LABS: Neutrophils % (Auto) 51.2 % (38.0-78.0)
--- NOTE | 2022-06-18 11:48 | Internal Med Progress Note ---
SUBJECTIVE Subjective Patient information: Note initiated : 06/18/22 at 11:47 am Service Date, if different from initiated Date: [] Patient: Sharyn Strickland 77 y/o F admitted on 06/14/22 for shortness of breath, hypoxia. Chief Complaint: [SOB] Principal diagnosis: Viral/bacterial pneumonia, Acute hypoxemic resp failure Interval history: The patient is looking and feeling much better. Her was at the bedside to discuss plan of care. Discussed the case with the RN. The patient will be downgraded to medical/surgical today. Constitutional Vitals: Vital Signs Temp Pulse Resp BP Pulse Ox O2 Del Method O2 Flow Rate 97.2 F 97 H 18 142/62 90 Nasal Cannula 3 06/18/22 08:01 06/18/22 10:01 06/18/22 10:01 06/18/22 10:01 06/18/22 10:01 06/18/22 08:01 06/18/22 08:01 Period Temp Pulse Resp BP Sys/Laughlin Pulse Ox O2 Del Method O2 Flow Rate Last 24 Hr 97.2 F-98.0 F 85-110 14-27 121-155/62-97 74-99 BiPAP-Room Air 3 Intake and Output 06/17/22 06/18/22 06/18/22 19:59 03:59 11:59 Intake Total 843 249 9973 Output Total 800 950 550 Balance -390 -500 850 Weight 76.204 kg Intake & Output: Intake & Output 06/17/22 06/18/22 06/18/22 19:59 03:59 11:59 Intake Total 253 137 4483 Output Total 800 950 550 Balance -390 -500 850 Weight 76.204 kg Intake: Nourishment/Supplement quantity 120 220 (ml) Oral 784 392 9710 Output: Void Amount 800 950 Urine/Stool Mix 550 Other: Meal Dinner Breakfast Percent of Meal Consumed 50% 100% Feeding Ability Assist with Tray Set Up Independent Nourishment/Supplement name [place] Urine Appearance Clear Clear Urine Color Yellow Yellow Stool Size Small Stool Color Brown Stool Consistency Loose # Bowel Movements 1 # of times incontinent of 0 Bowels Head Head exam: Present atraumatic and normal inspection Eye Eye exam: Present normal appearance ENT ENT exam: Present mucous membranes moist, normal exam and normal external ear exam Neck Neck exam: Present normal inspection Respiratory Respiratory exam: Present decreased breath sounds and rhonchi; Absent accessory muscle use or respiratory distress Cardiovascular Cardiovascular exam: Present normal rate and rhythm GI/Abdominal GI/Abdominal exam: Present normal bowel sounds Back Exam Back exam: Present normal inspection Neurological Exam Neurological exam: Present alert and oriented X3 Skin Skin exam: Present intact and warm OBJ DATA Labs 06/18/22 08:34 06/18/22 08:34 Labs: Abnormal Lab Results 06/18/22 06/18/22 06/17/22 08:34 08:34 07:15 WBC 13.7 H 18.6 H RBC Hgb Hct 33.7 L 33.3 L RDW 15.9 H 15.5 H Immature Gran % (Auto) 26.5 H 16.6 H Lymph % (Auto) 14.6 L 10.8 L [place] # (Auto) 1.32 H Immature Gran # 3.64 H 3.09 H Absolute Neutrophils 11.90 H POC pO2 ABG Methemoglobin VBG Total CO2 Carboxyhemoglobin Sodium Creatinine 0.5 L Calcium 8.5 L Phosphorus Direct Bilirubin GGT AST Lactate Dehydrogenase C-Reactive Protein Total Protein Albumin Albumin/Globulin Ratio Triglycerides Procalcitonin 06/17/22 06/17/22 06/16/22 07:14 07:14 05:24 WBC RBC Hgb Hct RDW Immature Gran % (Auto) Lymph % (Auto) [place] # (Auto) Immature Gran # Absolute Neutrophils POC pO2 ABG Methemoglobin 0.1 L VBG Total CO2 29.3 H Carboxyhemoglobin 4.9 H Sodium 131 L Creatinine 0.5 L Calcium 8.3 L Phosphorus Direct Bilirubin GGT AST Lactate Dehydrogenase C-Reactive Protein Total Protein Albumin Albumin/Globulin Ratio Triglycerides Procalcitonin 4.57 H 06/16/22 06/16/22 06/15/22 05:23 05:23 11:58 WBC 20.9 H RBC 3.50 L Hgb 11.0 L Hct 32.2 L RDW 15.8 H Immature Gran % (Auto) 7.6 H Lymph % (Auto) 8.7 L [place] # (Auto) 1.85 H Immature Gran # 1.59 H Absolute Neutrophils 15.31 H POC pO2 77 L ABG Methemoglobin VBG Total CO2 Carboxyhemoglobin Sodium 128 L Creatinine Calcium 8.1 L Phosphorus 2.2 L Direct Bilirubin 0.4 H GGT 89 H AST 53 H Lactate Dehydrogenase 258 H C-Reactive Protein 12.90 H Total Protein 5.3 L Albumin 2.2 L Albumin/Globulin Ratio 0.7 L Triglycerides 188 H Procalcitonin Meds: Medications Acetaminophen (Acetaminophen 325 Mg Tablet) 650 mg PO Q6HP PRN; Protocol PRN Reason: Per Pain Protocol/Fever > 101 Last Admin: 06/17/22 19:07 Dose: 650 mg Albuterol/Ipratropium (Ipratropium/Albuterol 3 Ml Ampul.Neb) 3 ml NEB Q6HRT [facility] Last Admin: 06/18/22 07:44 Dose: 3 ml Amitriptyline HCl (Amitriptyline 10 Mg Tablet) 10 mg PO HS [facility] Last Admin: 06/17/22 21:34 Dose: 10 mg Azithromycin (Azithromycin 250 Mg Tablet) 250 mg PO DAILY [facility]; Protocol Stop: 06/20/22 09:01 Last Admin: 06/18/22 08:43 Dose: 250 mg Benzonatate (Benzonatate 100 Mg Capsule) 100 mg PO TIDP PRN PRN Reason: Cough Last Admin: 06/18/22 08:46 Dose: 100 mg Budesonide (Budesonide 0.5 Mg/2 Ml Ampul.Neb) 0.5 mg NEB Q12 [facility] Last Admin: 06/17/22 19:10 Dose: 0.5 mg Ceftriaxone Sodium (Ceftriaxone 1 Gm Vial) 1 gm IV Q24H [facility] Last Admin: 06/18/22 08:43 Dose: 1 gm Citalopram Hydrobromide (Citalopram 20 Mg Tablet) 20 mg PO QDAY [facility] Last Admin: 06/18/22 08:43 Dose: 20 mg Dextrose (Dextrose 50% 50 Ml Vial) 0 ml IV UD PRN PRN Reason: Per Sliding Scale Diagnostic Test (Pha) (Accu-Chek 1 Each Strip) 1 each FS ACHS [facility] Last Admin: 06/18/22 11:21 Dose: 1 each Enoxaparin Sodium (Enoxaparin 40 Mg/0.4 Ml Syringe) 40 mg SQ DAILY [facility] Last Admin: 06/18/22 08:43 Dose: 40 mg Glucose (Dextrose 31 Gm Oral.Susp) 15 gm PO PRN PRN PRN Reason: Hypoglycemia Guaifenesin (Guaifenesin/Dextromethorphan 5ml Ud Cup) 10 ml PO Q4HP PRN PRN Reason: Cough Last Admin: 06/18/22 10:20 Dose: 10 ml Magnesium Sulfate (Magnesium Sulfate) 2 gm in 50 mls @ 50 mls/hr IV UD PRN PRN Reason: Magnesium </= 1.6 Potassium Chloride 40 meq/ (Dextrose) 520 mls @ 130 mls/hr IV UD PRN PRN Reason: Potassium < 3 Insulin Human Lispro (Insulin Lispro 1 Unit/0.01 Ml Unit) 0 unit SQ ACHS [facility]; Protocol Last Admin: 06/18/22 11:21 Dose: Not Given Labetalol HCl (Labetalol 5 Mg/Ml Ml) 0 mg IV Q2HP PRN PRN Reason: Hypertension Last Admin: 06/14/22 23:26 Dose: 5 mg Levothyroxine Sodium (Levothyroxine 100 Mcg Tablet) 100 mcg PO [facility] Last Admin: 06/18/22 07:34 Dose: 100 mcg Lisinopril (Lisinopril 20 Mg Tablet) 20 mg PO BID [facility] Last Admin: 06/18/22 08:43 Dose: 20 mg Omeprazole (Omeprazole 20 Mg Capsule) 20 mg PO [facility] Last Admin: 06/18/22 07:34 Dose: 20 mg Ondansetron HCl (Ondansetron 4 Mg/2 Ml Vial) 4 mg IV Q4HP PRN PRN Reason: Nausea And Vomiting Last Admin: 06/14/22 22:14 Dose: 4 mg Pneumococcal Polyvalent Vaccine (Pneumococcal 23-Barbra P-Sac Vac 0.5 Ml Syringe) 0.5 ml IM .ONCE ONE Stop: 06/19/22 09:01 Potassium Chloride (Potassium Chloride 20 Meq Tablet) 40 meq PO UD PRN PRN Reason: Potassium < 3 Potassium Chloride (Potassium Chloride 20 Meq Tablet) 40 meq PO UD PRN PRN Reason: Potssium is 3-3.5 Last Admin: 06/16/22 07:11 Dose: 40 meq Simvastatin (Simvastatin 20 Mg Tablet) 20 mg PO HS [facility] Last Admin: 06/17/22 21:34 Dose: 20 mg Sodium Chloride (0.9 % Sodium Chloride 10 Ml Syringe) 10 ml IV Q8 [facility] Last Admin: 06/18/22 05:39 Dose: 10 ml ABG Interpretation ABG results: 06/17/22 07:14 ABG Methemoglobin 0.1 L VBG pH 7.41 VBG pCO2 44.6 VBG pO2 35.0 VBG HCO3 27.9 VBG Total CO2 29.3 H VBG O2 Saturation 67.6 VBG Base Excess 3 A/P Narrative A/P Narrative: A: *Acute hypoxic respiratory failure: 2/2 PNA -currently on bipap *PNA: -strep/covid/flu neg -RSV(+), elevated PCT *Severe sepsis: 2/2 above -leukocytosis/tachycardia/tachypnea/Fever *Lactic acidosis: 2/2 above *Hyponatremia/hypophosphatemia: *Volume depletion: *Demand ischemia: f/u troponin this AM decreased *DM2: *HTN/HLD: *Depression/anxiety: *Hypothyroidism: *GERD: P: -started pulmicort and make duonebs scheduled 06/16 -weaned off bipap 06/16 -CTA chest 06/16-> neg for PE, but "Large alveolar infiltrates in the posterior left upper and lower lobes moderate infiltrate posterior right lower lobe and small tree-in-bud infiltrate posterior right upper lobe. Suspect infection or aspiration." -IV antibiotics, pending BC/SC -s/p IVF, follow-up lactate -Monitor UOP, fluid balance closely -Follow-up and trend sodium and other electrolytes, replete as necessary -IS/Acapella, RT, nebs as needed -O2 support and wean as able -Strep/RVP pending -Procalcitonin pending -f/u trop -echo to eval for stress cardiomyopathy -SSI -cont home ACEI -PT/OT -CM for placement needs -ppx: Lovenox / home ppi Time Spent With Patient Time: Total time spent is greater than 50% in coordination of care (as documented) at patient's floor/unit and/or counseling patient: Subsequent: Total time with patient: 25 - 34 minutes
[2022-06-18] MEDS: BUDESONIDE 0.5 MG/2 ML AMPUL.NEB NEB SCH ×3 (13:28→21:34)
[2022-06-18] MEDS: ACETAMINOPHEN 325 MG TABLET PO PRN (20:04)
[2022-06-18] MEDS: SIMVASTATIN 20 MG TABLET PO SCH (20:04)
[2022-06-18] MEDS: AMITRIPTYLINE 10 MG TABLET PO SCH (20:04)
[2022-06-19] MEDS: IPRATROPIUM/ALBUTEROL 3 ML AMPUL.NEB NEB SCH ×2 (00:47→07:16)
[2022-06-19] MEDS: guaiFENesin/DEXTROMETHORPHAN 5ML UD CUP PO PRN (04:46)
[2022-06-19] MEDS: LABETALOL 5 MG/ML ML IV PRN (04:46)
[2022-06-19] MEDS: 0.9 % SODIUM CHLORIDE 10 ML SYRINGE IV SCH (04:46)
[2022-06-19] MEDS: BENZONATATE 100 MG CAPSULE PO PRN (04:46)
[2022-06-19 06:44] LABS: Blood Urea Nitrogen 11 mg/dL (8-23); Calcium 8.3 mg/dL (8.6-10.4); Carbon Dioxide 22 mmol/L (22-30); Chloride 102 mmol/L (96-108); Glomerular Filtration Rate 94; Glucose 103 mg/dL (70-105)
[2022-06-19] MEDS: OMEPRAZOLE 20 MG CAPSULE PO SCH (07:08)
[2022-06-19] MEDS: INSULIN LISPRO 1 UNIT/0.01 ML UNIT SQ SCH ×2 (07:08→11:25)
[2022-06-19] MEDS: LEVOTHYROXINE 100 MCG TABLET PO SCH (07:08)
[2022-06-19] MEDS: BUDESONIDE 0.5 MG/2 ML AMPUL.NEB NEB SCH (07:16)
[2022-06-19 08:35] LABS: Basophils # (Auto) 0.03 K/mcL (0.00-0.30); Basophils % (Auto) 0.3 % (0.0-2.0); Eosinophils # (Auto) 0.22 K/mcL (0.00-0.70); Eosinophils % (Auto) 1.9 % (0.0-7.0); Hematocrit 31.8 % (34.1-44.9); Hemoglobin 10.5 g/dL (11.2-15.7); Lymphocytes # (Auto) 1.83 K/mcL (1.50-4.80); Lymphocytes % (Auto) 15.4 % (15.5-49.0); Mean Cell Volume 92.4 fL (80.0-100.0); Mean Platelet Volume 9.9 fL (8.8-12.5); Monocytes # (Auto) 0.82 K/mcL (0.10-0.90); Monocytes % (Auto) 6.9 % (1.0-12.0); Neutrophils % (Auto) 49.9 % (38.0-78.0); Platelet Count 265 K/mcL (140-440); RBC 3.44 M/mcL (3.59-5.38); Red Cell Distribution Width 15.9 % (11.5-14.5); WBC 11.9 K/mcL (4.5-11.0)
[2022-06-19] MEDS ORDERED: PNEUMOCOCCAL 23-VAL P-SAC VAC 0.5 ML SYRINGE IM ONE (09:00)
[2022-06-19] MEDS: CITALOPRAM 20 MG TABLET PO SCH (09:04)
[2022-06-19] MEDS: cefTRIAXone 1 GM VIAL IV SCH (09:05)
[2022-06-19] MEDS: LISINOPRIL 20 MG TABLET PO SCH (09:05)
[2022-06-19] MEDS: AZITHROMYCIN 250 MG TABLET PO SCH (09:05)
[2022-06-19] MEDS: ENOXAPARIN 40 MG/0.4 ML SYRINGE SQ SCH (09:05)
[2022-06-19] MEDS ORDERED: FLU VACC QS2022-23(6MOS UP)/PF 60 MCG/0.5 ML SYRINGE IM ONE (10:00)
--- NOTE | 2022-06-19 11:21 | Discharge Summary ---
Discharge Provider Provider IMPORTANT FOLLOW-UP INFORMATION FOR PCP: 1. F/u with PCP 2. Repeat CXR in 3-4 weeks 3. Cards referral Patient information: Note initiated : 06/19/22 at 11:18 am Service Date, if different from initiated Date: [] Patient: Sharyn Strickland 77 y/o F admitted on 06/14/22 for shortness of breath, hypoxia. Chief Complaint: [SOB] Date of admission: 06/14/22 19:11 Discharge date: 06/19/22 Consults: 06/14/22 Consult to Physician [CONS] Stat Comment: Consulting Provider: Kyrie Torres Reason For Exam: Physician to Consult Attending physician on discharge: Laverne Kelley COURSE Hospital Course Hospital course: The patient is completed 5 days of antibiotics for her pneumonia. She has been weaned off supplemental O2 and has done very well. She will be discharged home with home health. She has been set up with a PCP for follow-up. A: *Acute hypoxic respiratory failure: 2/2 PNA -currently on bipap *PNA: -strep/covid/flu neg -RSV(+), elevated PCT *Severe sepsis: 2/2 above -leukocytosis/tachycardia/tachypnea/Fever *Lactic acidosis: 2/2 above *Hyponatremia/hypophosphatemia: *Volume depletion: *Demand ischemia: f/u troponin this AM decreased *DM2: *HTN/HLD: *Depression/anxiety: *Hypothyroidism: *GERD: P: -started pulmicort and make duonebs scheduled 06/16 -weaned off bipap 06/16 -CTA chest 06/16-> neg for PE, but "Large alveolar infiltrates in the posterior left upper and lower lobes moderate infiltrate posterior right lower lobe and small tree-in-bud infiltrate posterior right upper lobe. Suspect infection or aspiration." -IV antibiotics, pending BC/SC -s/p IVF, follow-up lactate -Monitor UOP, fluid balance closely -Follow-up and trend sodium and other electrolytes, replete as necessary -IS/Acapella, RT, nebs as needed -O2 support and wean as able -Strep/RVP pending -Procalcitonin pending -f/u trop -echo to eval for stress cardiomyopathy -SSI -cont home ACEI -PT/OT -CM for placement needs -ppx: Lovenox / home ppi Discharge diagnosis: Sepsis, community-acquired pneumonia, hypoxemic respiratory failure Time Spent with Patient Time attestation: Total time spent providing and/or coordinating discharge services: Time spent: Greater than 30 minutes EXAM Constitutional Vitals: Temp Pulse Resp BP Pulse Ox O2 Del Method O2 Flow Rate 97.4 F 84 22 146/70 100 Room Air 3 06/19/22 07:56 06/19/22 08:00 06/19/22 08:00 06/19/22 07:56 06/19/22 08:00 06/19/22 08:00 06/18/22 08:01 General appearance: average body habitus Head Head exam: Present atraumatic, normal inspection and normocephalic Eye Eye exam: Present EOMI, normal appearance and PERRL; Absent conjunctival injection ENT ENT exam: Present normal exam; Absent mucous membranes dry Neck Neck exam: Present full ROM; Absent lymphadenopathy Respiratory Respiratory exam: Present normal respiratory exam and CTAB; Absent decreased breath sounds, respiratory distress or wheezes Cardiovascular Cardiovascular exam: Present normal rate and rhythm and RRR; Absent JVD GI/Abdominal GI/Abdominal exam: Present normal bowel sounds and soft; Absent diminished bowel sounds, distended, guarding, mass, rebound or tenderness Neurological Exam Neurological exam: Present alert, CN II-XII intact and oriented X3 Psychiatric Psychiatric exam: Present normal affect and normal mood Skin Skin exam: Present intact and warm; Absent erythema, pallor, petechiae or rash Discharge Data Data Completed and Pending Labs on day of discharge: Labs from last 24 hours 06/19/22 06/19/22 05:30 05:23 WBC 11.9 H RBC 3.44 L Hgb 10.5 L Hct 31.8 L MCV 92.4 MCH 30.5 MCHC 33.0 RDW 15.9 H Plt Count 265 MPV 9.9 Immature Gran % (Auto) 25.6 H Neut % (Auto) 49.9 Lymph % (Auto) 15.4 L [place] % (Auto) 6.9 Eos % (Auto) 1.9 Baso % (Auto) 0.3 Lymph # (Auto) 1.83 [place] # (Auto) 0.82 Eos # (Auto) 0.22 Baso # (Auto) 0.03 Immature Gran # 3.03 H Absolute Neutrophils 5.92 Sodium 135 Potassium 3.7 Chloride 102 Carbon Dioxide 22 Anion Gap 11.0 BUN 11 Creatinine 0.5 L GFR Calculation 94 Glucose 103 Calcium 8.3 L Preliminary micro results at discharge 06/14/22 13:18 Blood Culture - Preliminary Blood 06/14/22 13:13 Blood Culture - Preliminary Blood Discharge Plan Patient/Caregiver Discharge Instructions Activity: increase activity as tolerated Instructions: Heart Failure (GEN), Bacterial Pneumonia (DC), Hypoxia (GEN) Prescriptions: Continued lisinopril 20 mg tablet 20 mg PO BID levothyroxine 100 mcg tablet 100 mcg PO QDAY amitriptyline 10 mg tablet 10 mg PO HS simvastatin 20 mg tablet 20 mg PO HS omeprazole 20 mg capsule,delayed release(DR/EC) 20 mg PO QDAY citalopram 20 mg tablet 20 mg PO QDAY metformin 500 mg tablet extended release 24 hr 1,000 mg PO HS Follow Up Plan Follow up with: Sandra Leonard PA-C [Physician] - 06/23/22 4:00 pm (This will be your assigned [facility] Physician. Please arrive 15 minutes early.) Patient Disposition: Home Health Service Prognosis: Critical I certify that the patient requires SNF services: No Overall status at discharge: patient is progressing back to baseline Discharge Orders: Discharge Order (Routine); Ordered 06/19/22 Ordered By: Laverne Kelley
== END 2022-06-19 12:20 | disposition home health service (06) | DRG 871 ==
LOC: ED 12:24 → ICU 19:11
PROVIDERS: ADMIT Internal Medicine; ATTEND Internal Medicine